=== PATIENT | female | born 1980 | race Hispanic/Latino ===

== ENCOUNTER 2017-05-28 15:00 | Inpatient (IN) | payer MEDICAID, OTHER ==
[2017-05-28 15:00] VITALS: BMI 28.0
[2017-05-28] MEDS ORDERED: Sodium Chloride 0.9% 1,000 ML IV STA ×2 (15:34→17:55)
--- NOTE | 2017-05-28 15:43 | ED PDOC ---
HPI: Abdomen History Per: Patient History/Exam Limitations: no limitations Onset/Duration Of Symptoms: Days Outside of [place] travel?: No Current Symptoms Are (Timing): Still Present Severity: Severe Pain Scale Rating Of: 9 Location Of Pain/Discomfort: Epigastric Quality Of Discomfort: Pressure Associated Symptoms: Urinary Symptoms (orange urine ), Other (diaphoresis ). denies: Fever, Chills, Nausea, Vomiting, Diarrhea, Constipation Exacerbating Factors: Movement, Walking, Deep Breaths Alleviating Factors: None Last Bowel Movement: Today Abnormal Vaginal Bleeding: No Last Menstral Period: 3 weeks ago <Laura Cheatham - Last Filed: 05/28/17 20:47> <Luli Galicia - Last Filed: 05/29/17 16:04> Time Seen by Provider: 05/28/17 15:03 Chief Complaint (Nursing): Abdominal Pain Additional Complaint(s): 36 YO Female with PMH of Anemia presents to [facility] ED for abdominal pain. Pt states that the pain started suddenly yesterday. Pain is pressure in nature and rated as a 9/10 with radiation to the RLQ, and pain that goes through to the back and R/L flank. Pain has persisted and gradually worsened since its onset. Pt endorses orange urine this morning. Of note, pt endorses similar episode in the past 2 months ago but the pain subsided by itself. This time the pain is worse and not subsided. Denies fever, chills, n/v/c/d, no changes in stool, chest pain, dyspnea, dysuria, urinary frequency. + diaphoresis. of note, pt has recently lost 60+lbs since december of this year. She started taking phentermine to loose weight. (Laura Cheatham) Supervising Attending Note <Laura Cheatham - Last Filed: 05/28/17 20:47> - Supervising Attending Note The Documented history was done by the: Physician Document Clerk, Attending Physician The documented physical exam was done by the: Physician Document Clerk, Attending Physician - Attestation: I have personally seen and examined this patient.: Yes I have fully participated in the care of the patient.: Yes I have reviewed all pertinent clinical information: Yes <Luli Galicia - Last Filed: 05/29/17 16:04> - Notes: Notes:: Epig tenderness DW Dr Wellington Hospitalist admitting for PMD Dr Cueva. She evaluated pt in ER and d/ w Dr Joy for Surgery. VERNA Velasquez GI fellow for Dr Ambriz. Recommends MRCP and IVF. Will follow in hospital. (Luli Galicia) Past Medical History Reviewed: Historical Data, Nursing Documentation, Vital Signs - Medical History PMH: Anemia - Surgical History Surgical History: No Surg Hx - Family History Family History: States: Unknown Family Hx - Living Arrangements Living Arrangements: With Family - Social History Current smoker - smoking cessation education provided: No Ex-Smoker (has not smoked in the last 12 months): No Alcohol: None Drugs: Denies <Laura Cheatham - Last Filed: 05/28/17 20:47> <Luli Galicia - Last Filed: 05/29/17 16:04> Vital Signs: Last Vital Signs Temp 98.3 F 05/29/17 07:33 Pulse 86 05/29/17 07:33 Resp 18 05/29/17 07:33 BP 110/72 05/29/17 07:33 Pulse Ox 98 05/29/17 07:33 - Home Medications Home Medications: Ambulatory Orders Medication Instructions Recorded No Known Home Med 05/28/17 - Allergies Allergies/Adverse Reactions: Allergies Allergy/AdvReac Type Severity Reaction Status Date / Time No Known Allergies Allergy Verified 01/20/15 16:33 Review of Systems ROS Statement: Except As Marked, All Systems Reviewed And Found Negative Constitutional: Positive for: Sweats (diaphoresis ). Negative for: Fever, Chills Cardiovascular: Negative for: Chest Pain, Palpitations Respiratory: Negative for: Cough, Shortness of Breath Gastrointestinal: Positive for: Abdominal Pain (epigastric pain with radiation to L+R flank and RLQ). Negative for: Nausea, Vomiting, Diarrhea, Constipation Genitourinary Female: Positive for: Other (orange urine ). Negative for: Dysuria, Frequency <Laura Cheatham - Last Filed: 05/28/17 20:47> Physical Exam - Reviewed Nursing Documentation Reviewed: Yes Vital Signs Reviewed: Yes - Physical Exam Appears: Positive for: Well (Pt looks pale), Non-toxic, Uncomfortable Head Exam: Positive for: ATRAUMATIC, NORMAL INSPECTION, NORMOCEPHALIC Skin: Positive for: Normal Color, Warm, DRY Eye Exam: Positive for: EOMI, Normal appearance, PERRL ENT: Positive for: Normal ENT Inspection Neck: Positive for: Normal, Painless ROM Cardiovascular/Chest: Positive for: Regular Rate, Rhythm. Negative for: Murmur Respiratory: Positive for: CNT, Normal Breath Sounds Gastrointestinal/Abdominal: Positive for: Bowel Sounds, Soft, Tenderness ( tenderness to palpation of the epigastric area), Other (Cordova's sign neg ). Negative for: Mass, Distended, Guarding, Rebound Back: Positive for: Normal Inspection. Negative for: L CVA Tenderness, R CVA Tenderness Extremity: Positive for: Normal ROM. Negative for: Tenderness, Pedal Edema, Swelling Neurologic/Psych: Positive for: Alert, surveillance sensor officer II-XII, Oriented <Laura Cheatham - Last Filed: 05/28/17 20:47> - Laboratory Results Result Diagrams: 05/28/17 15:35 05/28/17 16:00 - ECG O2 Sat by Pulse Oximetry: 100 <Laura Cheatham - Last Filed: 05/28/17 20:47> - Laboratory Results Result Diagrams: 05/29/17 05:30 05/29/17 05:30 <Luli Galicia - Last Filed: 05/29/17 16:04> - Progress ED Course And Treament: 36 YO Female with PMH of Anemia presents to [facility] ED for abdominal pain. -IV fluids and meds administered -cbc wnl -cmp sig for T bili 5.4, AST 366, ALT 501 and alk phos 143. -lipase -type and screen -u/s of the abdomen appreciated, findings + for cordova's sign, cholecystitis with choledocolithiasis -urine dip sig for large bili, urobili with ketones, glucose and protein. 17:27- pt re-evaluated. Pt feels better but pain is still persistent. Pt notified of her results and she understands and agrees with plan -lipase 44210, acute pancreatitis -admit pt -case discussed with hospitalist (Laura Cheatham) Disposition - Patient ED Disposition Is Patient to be Admitted: Yes - Disposition Disposition Time: 18:54 - Pt Status Changed To: Hospital Disposition Of: Inpatient - Admit Certification Admit to Inpatient:: After my assessment, the patient will require hospitalization for at least two midnights. This is because of the severity of symptoms shown, intensity of services needed, and/or the medical risk in this patient being treated as an outpatient. <Laura Cheatham - Last Filed: 05/28/17 20:47> <Luli Galicia - Last Filed: 05/29/17 16:04> - Clinical Impression Clinical Impression: Pancreatitis, acute, Choledocholithiasis with acute cholecystitis with obstruction - Disposition Condition: STABLE
[2017-05-28 16:08] LABS: BASO % 0.3 % (0.0-2.0); EOS % 0.2 % (0.0-4.0); LYMPH # 0.6 K/uL (1.0-4.3); LYMPH % 6.3 % (20.0-40.0); MEAN CELL VOLUME 83.7 fl (81.0-99.0); MEAN CORPUSCULAR HEMOGLOBIN 28.3 pg (27.0-31.0); MEAN CORPUSCULAR HGB CONC 33.8 g/dL (33.0-37.0); MEAN PLATELET VOLUME 9.3 fl (7.2-11.7); MONO # 0.5 K/uL (0.0-0.8); MONO % 5.4 % (0.0-10.0); NEUT # 7.8 K/uL (1.8-7.0); NEUT % 87.8 % (50.0-75.0); PLATELET COUNT 240 K/uL (130-400); RED CELL DISTRIBUTION WIDTH 14.2 % (11.5-14.5); WHITE BLOOD COUNT 8.9 K/uL (4.8-10.8)
[2017-05-28 16:15] LABS: RBC URINE 4 /hpf (0-3); URINE BILIRUBIN MODERATE (NEGATIVE); URINE BLOOD NEGATIVE (NEGATIVE); URINE COLOR AMBER (YELLOW); URINE GLUCOSE (UA) NEG (Normal); URINE KETONE TRACE mg/dL (NEGATIVE); URINE LEUKOCYTE ESTERASE NEG Leu/uL (Negative); URINE PROTEIN 100 mg/dL (NEGATIVE); WBC URINE 5 /hpf (0-5)
[2017-05-28 16:19] LABS: PARTIAL THROMBOPLASTIN TIME 31.1 Seconds (25.6-37.1)
[2017-05-28 16:23] LABS: URINE BACTERIA RARE (<OCC)
[2017-05-28 16:31] LABS: ALB/GLOB RATIO 1.3 (1.0-2.1); ALKALINE PHOSPHATASE 143 U/L (38-126); ALT/SGPT 501 U/L (9-52); AST/SGOT 366 U/L (14-36); BILIRUBIN,TOTAL 5.4 mg/dl (0.2-1.3); BLOOD UREA NITROGEN 8 mg/dl (7-17); CALCIUM 8.9 mg/dL (8.4-10.2); CARBON DIOXIDE 23 mmol/L (22-30); CHLORIDE 105 mmol/L (98-107); GFR AFRICAN-AMERICAN > 60; GLUCOSE,RANDOM 102 mg/dL (65-105); POTASSIUM 3.3 MMOL/L (3.6-5.0); SODIUM 140 mmol/l (132-148); TOTAL PROTEIN 7.5 G/DL (6.3-8.2)
--- NOTE | 2017-05-28 17:19 | US ---
HISTORY: epig and LEFT flank pain COMPARISON: None. TECHNIQUE: Sonographic evaluation of the abdomen. FINDINGS: LIVER: Measures 15.0 cm. Normal echogenicity of the liver parenchyma. No mass. No intrahepatic bile duct dilatation. Normal hepatopetal portal venous flow. GALLBLADDER: Tiny calculi and sludge. Mild mural thickening noted up to 4 mm. No pericholecystic fluid. Positive sonographic Cordova sign. COMMON BILE DUCT: Measures 10 mm. No evidence of choledocholithiasis. PANCREAS: Unremarkable as visualized. No mass. No ductal dilatation. RIGHT KIDNEY: Measures 9.6cm. Normal echogenicity. No calculus, mass, or hydronephrosis. LEFT KIDNEY: Measures 10.6cm. Normal echogenicity. No calculus, mass, or hydronephrosis. SPLEEN: Normal in size and contour. No mass. AORTA: No aneurysmal dilatation. IVC: Unremarkable. OTHER FINDINGS: None. IMPRESSION: Cholelithiasis with mild mural thickening and positive sonographic Cordova sign. Findings are suspicious for acute cholecystitis. Dilatation of the common bile duct to a 10 mm diameter. No accompanying pancreatic ductal dilatation. No intrahepatic biliary ductal dilatation.
[2017-05-28 17:38] LABS: EOSINOPHIL 2 % (0-7); NEUTROPHIL 84 % (42-75); TOTAL CELLS COUNTED 100
[2017-05-28 17:53] LABS: LIPASE 19614 U/L (23-300)
[2017-05-28] MEDS ORDERED: Piperacillin/Tazobact 3.375 GM in Sodium Chloride 0.9% 100 ML IVPB STA (17:56)
[2017-05-28] MEDS ORDERED: Potassium CL 10mEq/100ml 100 ML IVPB ONE (18:07)
[2017-05-28] MEDS ORDERED: Piperacillin/Tazobact 3.375 gm Inj IVPB ONE (18:17)
[2017-05-28 18:49] LABS: VENOUS BLOOD GAS BASE EXCESS -0.7 mmol/L (0.0-2.0); VENOUS BLOOD GAS PCO2 49 mmHg (40-60); VENOUS BLOOD PH 7.33 (7.32-7.43)
[2017-05-28] MEDS ORDERED: Lactated Ringer's 1,000 ML IV SCH (19:00)
--- NOTE | 2017-05-28 19:06 | CP.PCM.HP ---
History of Present Illness - History of Present Illness History of Present Illness: CC: STOMACH PAIN HPI 36 year old female no PMH presents with a 2 day history of severe sharp constant and worsening abdominal pain which began midepigastric and moved to RUQ , radiating to back. No associated nausea or emesis. Increased pain with eating , also complains of very dark sujatha urine. She states she has had this pain several times in the past and was self-limited. Pt also admits to several months of generalized itchiness and yellow stool. She states she was seen by PCP Dr. Cueva for this. Note: pt had appx 60lb weight loss using Phentermine in past 5 months. Normal WBC, afebrile. HD stable. ABD US: +cholecystitis , CBD 10MM TBILI 5.4 AST/ALT 366/501 ALP 143 URINE BILI MOD LIPASE 19,614 Pt admitted for acute gallstone pancreatitis, acute cholecystitis. Surgery and GI consulted. For MRCP in AM. ROS: per HPI all other systems reviewed and negative by me PMSH: DENIES FH: PANCREATIC CA SH: DENIES TOBACCO, ETOH, IVDU MEDS NONE NKDA VITALS Temp Pulse Resp BP Pulse Ox 98.3 F 87 17 117/79 100 05/28/17 18:29 05/28/17 18:29 05/28/17 18:29 05/28/17 18:29 05/28/17 18:55 EXAM: GEN: WDWN, ALERT, COOPERATIVE HEENT: NCAT, PERRL, EOMI HEART: +S1+S2, RRR NO MRG LUNG: CTAB, NO WRR ABD: SOFT BSX4 GENERALIZED TENDERNESS ND NO HSM NO MASS EXT: WARM, WELL PERFUSED NEURO: AA0X3, STRENGTH AND SENSATION EQUAL AND BILATERAL SKIN: WARM DRY PSYCH: NORMAL MOOD NORMAL AFFECT LABS 05/28/17 05/28/17 05/28/17 18:41 18:20 16:00 WBC RBC Hgb Hct MCV MCH MCHC RDW Plt Count MPV Neut % (Auto) Lymph % (Auto) [place] % (Auto) Eos % (Auto) Baso % (Auto) Neut # Lymph # [place] # Eos # Baso # Neutrophils % (Manual) Band Neutrophils % Lymphocytes % (Manual) Monocytes % (Manual) Eosinophils % (Manual) Platelet Estimate Hypochromasia (manual) Poikilocytosis (manual Anisocytosis (manual) Microcytosis (manual) PT INR APTT pO2 16 L VBG pH 7.33 VBG pCO2 49 VBG HCO3 22.2 VBG Total CO2 27.3 VBG O2 Sat (Calc) 27.2 L VBG Base Excess -0.7 L VBG Potassium 3.9 Glucose 95 Lactate 0.9 FiO2 21.0 Sodium 137.0 140 Potassium 3.3 L Chloride 107.0 105 Carbon Dioxide 23 Anion Gap 15 BUN 8 Creatinine 0.7 Est GFR ( Amer) > 60 Est GFR (Non-Af Amer) > 60 Random Glucose 102 Calcium 8.9 Total Bilirubin 5.4 H AST 366 H ALT 501 H D Alkaline Phosphatase 143 H Lactate Dehydrogenase 767 H Total Protein 7.5 Albumin 4.2 Globulin 3.2 Albumin/Globulin Ratio 1.3 Lipase 30171 H Venous Blood Potassium 3.9 Urine Color Urine Clarity Urine pH Ur Specific [place] Urine Protein Urine Glucose (UA) Urine Ketones Urine Blood Urine Nitrate Urine Bilirubin Urine Urobilinogen Ur Leukocyte Esterase Urine RBC (Auto) Urine Microscopic WBC Ur Squamous Epith Cells Urine Bacteria Blood Type Antibody Screen BBK History Checked 05/28/17 05/28/17 05/28/17 15:55 15:35 15:35 WBC RBC Hgb Hct MCV MCH MCHC RDW Plt Count MPV Neut % (Auto) Lymph % (Auto) [place] % (Auto) Eos % (Auto) Baso % (Auto) Neut # Lymph # [place] # Eos # Baso # Neutrophils % (Manual) Band Neutrophils % Lymphocytes % (Manual) Monocytes % (Manual) Eosinophils % (Manual) Platelet Estimate Hypochromasia (manual) Poikilocytosis (manual Anisocytosis (manual) Microcytosis (manual) PT 11.9 INR 1.1 APTT 31.1 pO2 VBG pH VBG pCO2 VBG HCO3 VBG Total CO2 VBG O2 Sat (Calc) VBG Base Excess VBG Potassium Glucose Lactate FiO2 Sodium Potassium Chloride Carbon Dioxide Anion Gap BUN Creatinine Est GFR ( Amer) Est GFR (Non-Af Amer) Random Glucose Calcium Total Bilirubin AST ALT Alkaline Phosphatase Lactate Dehydrogenase Total Protein Albumin Globulin Albumin/Globulin Ratio Lipase Venous Blood Potassium Urine Color Sujatha Urine Clarity Slighty-cloudy Urine pH 5.0 Ur Specific [place] 1.028 Urine Protein 100 Urine Glucose (UA) Neg Urine Ketones Trace Urine Blood Negative Urine Nitrate Negative Urine Bilirubin Moderate Urine Urobilinogen 4.0 H Ur Leukocyte Esterase Neg Urine RBC (Auto) 4 H Urine Microscopic WBC 5 Ur Squamous Epith Cells 6 H Urine Bacteria Rare Blood Type O POSITIVE Antibody Screen Negative BBK History Checked No verified bt 05/28/17 15:35 WBC 8.9 RBC 4.54 Hgb 12.9 Hct 38.0 MCV 83.7 D MCH 28.3 MCHC 33.8 RDW 14.2 Plt Count 240 MPV 9.3 Neut % (Auto) 87.8 H Lymph % (Auto) 6.3 L [place] % (Auto) 5.4 Eos % (Auto) 0.2 Baso % (Auto) 0.3 Neut # 7.8 H Lymph # 0.6 L [place] # 0.5 Eos # 0.0 Baso # 0.0 Neutrophils % (Manual) 84 H Band Neutrophils % 2 Lymphocytes % (Manual) 8 L Monocytes % (Manual) 4 Eosinophils % (Manual) 2 Platelet Estimate Normal Hypochromasia (manual) Slight Poikilocytosis (manual Slight Anisocytosis (manual) Slight Microcytosis (manual) Slight PT INR APTT pO2 VBG pH VBG pCO2 VBG HCO3 VBG Total CO2 VBG O2 Sat (Calc) VBG Base Excess VBG Potassium Glucose Lactate FiO2 Sodium Potassium Chloride Carbon Dioxide Anion Gap BUN Creatinine Est GFR ( Amer) Est GFR (Non-Af Amer) Random Glucose Calcium Total Bilirubin AST ALT Alkaline Phosphatase Lactate Dehydrogenase Total Protein Albumin Globulin Albumin/Globulin Ratio Lipase Venous Blood Potassium Urine Color Urine Clarity Urine pH Ur Specific [place] Urine Protein Urine Glucose (UA) Urine Ketones Urine Blood Urine Nitrate Urine Bilirubin Urine Urobilinogen Ur Leukocyte Esterase Urine RBC (Auto) Urine Microscopic WBC Ur Squamous Epith Cells Urine Bacteria Blood Type Antibody Screen BBK History Checked IMAGING STUDIES ABD US - Cholelithiasis, mild mural thickening and + sono Cordova's sign. Findings suspicious for acute cholecystitis. CBD 10mm, no pancreatic ductal dilatation, no intrahepatic biliary ductal dilatiation. Active Medications 05/28/17 18:00 Dextrose 5%-0.9% NS [Dextrose 5%-0.9% NS 500 ml] 1,000 ml IV 100 mls/hr 05/28/17 18:52 Acetaminophen [Tylenol 325mg tab] 650 mg PO Q6 PRN Morphine 2 mg IVP Q6 PRN Morphine 4 mg IVP Q6 PRN Ondansetron [Zofran Inj] 4 mg IVP Q6 PRN 05/28/17 19:00 Lactated Ringer's 1,000 ml IV 250 mls/hr 05/29/17 01:00 Piperacillin/Tazobact [Zosyn] 3.375 gm Sodium Chloride 0.9% 100 ml IVPB Q8 Clinical Indication: Therapeutic Therapy Piperacillin-Tazobactam Indication: Intra-Abdominal Infx 05/29/17 09:00 Enoxaparin [Lovenox] 40 mg SC DAILY ASSESSMENT AND PLAN: 36 year old female no PMH presents with a 2 day history of severe sharp constant and worsening abdominal pain which began midepigastric and moved to RUQ , radiating to back. No associated nausea or emesis. Increased pain with eating , also complains of very dark sujatha urine. She states she has had this pain several times in the past and was self-limited. Pt also admits to several months of generalized itchiness and yellow stool. She states she was seen by PCP Dr. Cueva for this. Note: pt had appx 60lb weight loss using Phentermine in past 5 months. Normal WBC, afebrile. HD stable. ABD US: +cholecystitis , CBD 10MM TBILI 5.4 AST/ALT 366/501 ALP 143 URINE BILI MOD LIPASE 19,614 Pt admitted for acute gallstone pancreatitis, acute cholecystitis. Surgery and GI consulted. For MRCP in AM. ACUTE GALLSTONE PANCREATITIS Lipase 08413 NPO, LR@250cc/hr Gastroenterology Consult: Dr. Ambriz Pain Control CHOLEDOCHOLITHIASIS MRCP in AM GI consult: Dr. Ambriz ACUTE CHOLECYSTITIS Surgery Consult: Dr. Rufino Alvarado Tbili 5.4 +US for Cholecystitis pain control ELEVATED TRANSAMINASES 2/2 acute pancreatitis and cholecystitis AST/ALT/ALP 366/501/143 monitor HYPOKALEMIA K 3.3 repleted in ER BMP in AM VTE ppx lovenox Present on Admission - Present on Admission Any Indicators Present on Admission: No Past Patient History - Infectious Disease Hx of Infectious Diseases: None - Past Social History Alcohol: None Drugs: Denies - HEMATOLOGICAL/ONCOLOGICAL Hx Anemia: Yes - PSYCHIATRIC Hx Substance Use: No - SURGICAL HISTORY Hx Surgeries: No - ANESTHESIA Hx Anesthesia: No Meds Allergies/Adverse Reactions: Allergies Allergy/AdvReac Type Severity Reaction Status Date / Time No Known Allergies Allergy Verified 01/20/15 16:33 Results - Vital Signs Recent Vital Signs: Last Vital Signs Temp 98.3 F 05/28/17 18:29 Pulse 87 05/28/17 18:29 Resp 17 05/28/17 18:29 BP 117/79 05/28/17 18:29 Pulse Ox 100 05/28/17 18:55 - Labs Result Diagrams: 05/28/17 15:35 05/28/17 16:00 Labs: Laboratory Results - last 24 hr 05/28/17 05/28/17 05/28/17 15:35 15:35 15:35 WBC 8.9 RBC 4.54 Hgb 12.9 Hct 38.0 MCV 83.7 D MCH 28.3 MCHC 33.8 RDW 14.2 Plt Count 240 MPV 9.3 Neut % (Auto) 87.8 H Lymph % (Auto) 6.3 L [place] % (Auto) 5.4 Eos % (Auto) 0.2 Baso % (Auto) 0.3 Neut # 7.8 H Lymph # 0.6 L [place] # 0.5 Eos # 0.0 Baso # 0.0 Neutrophils % (Manual) 84 H Band Neutrophils % 2 Lymphocytes % (Manual) 8 L Monocytes % (Manual) 4 Eosinophils % (Manual) 2 Platelet Estimate Normal Hypochromasia (manual) Slight Poikilocytosis (manual Slight Anisocytosis (manual) Slight Microcytosis (manual) Slight PT 11.9 INR 1.1 APTT 31.1 pO2 VBG pH VBG pCO2 VBG HCO3 VBG Total CO2 VBG O2 Sat (Calc) VBG Base Excess VBG Potassium Glucose Lactate FiO2 Sodium Potassium Chloride Carbon Dioxide Anion Gap BUN Creatinine Est GFR ( Amer) Est GFR (Non-Af Amer) Random Glucose Calcium Total Bilirubin AST ALT Alkaline Phosphatase Lactate Dehydrogenase Total Protein Albumin Globulin Albumin/Globulin Ratio Lipase Venous Blood Potassium Urine Color Urine Clarity Urine pH Ur Specific [place] Urine Protein Urine Glucose (UA) Urine Ketones Urine Blood Urine Nitrate Urine Bilirubin Urine Urobilinogen Ur Leukocyte Esterase Urine RBC (Auto) Urine Microscopic WBC Ur Squamous Epith Cells Urine Bacteria Blood Type O POSITIVE Antibody Screen Negative BBK History Checked No verified bt 05/28/17 05/28/17 05/28/17 15:55 16:00 18:20 WBC RBC Hgb Hct MCV MCH MCHC RDW Plt Count MPV Neut % (Auto) Lymph % (Auto) [place] % (Auto) Eos % (Auto) Baso % (Auto) Neut # Lymph # [place] # Eos # Baso # Neutrophils % (Manual) Band Neutrophils % Lymphocytes % (Manual) Monocytes % (Manual) Eosinophils % (Manual) Platelet Estimate Hypochromasia (manual) Poikilocytosis (manual Anisocytosis (manual) Microcytosis (manual) PT INR APTT pO2 VBG pH VBG pCO2 VBG HCO3 VBG Total CO2 VBG O2 Sat (Calc) VBG Base Excess VBG Potassium Glucose Lactate FiO2 Sodium 140 Potassium 3.3 L Chloride 105 Carbon Dioxide 23 Anion Gap 15 BUN 8 Creatinine 0.7 Est GFR ( Amer) > 60 Est GFR (Non-Af Amer) > 60 Random Glucose 102 Calcium 8.9 Total Bilirubin 5.4 H AST 366 H ALT 501 H D Alkaline Phosphatase 143 H Lactate Dehydrogenase 767 H Total Protein 7.5 Albumin 4.2 Globulin 3.2 Albumin/Globulin Ratio 1.3 Lipase 34457 H Venous Blood Potassium Urine Color Sujatha Urine Clarity Slighty-cloudy Urine pH 5.0 Ur Specific [place] 1.028 Urine Protein 100 Urine Glucose (UA) Neg Urine Ketones Trace Urine Blood Negative Urine Nitrate Negative Urine Bilirubin Moderate Urine Urobilinogen 4.0 H Ur Leukocyte Esterase Neg Urine RBC (Auto) 4 H Urine Microscopic WBC 5 Ur Squamous Epith Cells 6 H Urine Bacteria Rare Blood Type Antibody Screen BBK History Checked 05/28/17 18:41 WBC RBC Hgb Hct MCV MCH MCHC RDW Plt Count MPV Neut % (Auto) Lymph % (Auto) [place] % (Auto) Eos % (Auto) Baso % (Auto) Neut # Lymph # [place] # Eos # Baso # Neutrophils % (Manual) Band Neutrophils % Lymphocytes % (Manual) Monocytes % (Manual) Eosinophils % (Manual) Platelet Estimate Hypochromasia (manual) Poikilocytosis (manual Anisocytosis (manual) Microcytosis (manual) PT INR APTT pO2 16 L VBG pH 7.33 VBG pCO2 49 VBG HCO3 22.2 VBG Total CO2 27.3 VBG O2 Sat (Calc) 27.2 L VBG Base Excess -0.7 L VBG Potassium 3.9 Glucose 95 Lactate 0.9 FiO2 21.0 Sodium 137.0 Potassium Chloride 107.0 Carbon Dioxide Anion Gap BUN Creatinine Est GFR ( Amer) Est GFR (Non-Af Amer) Random Glucose Calcium Total Bilirubin AST ALT Alkaline Phosphatase Lactate Dehydrogenase Total Protein Albumin Globulin Albumin/Globulin Ratio Lipase Venous Blood Potassium 3.9 Urine Color Urine Clarity Urine pH Ur Specific [place] Urine Protein Urine Glucose (UA) Urine Ketones Urine Blood Urine Nitrate Urine Bilirubin Urine Urobilinogen Ur Leukocyte Esterase Urine RBC (Auto) Urine Microscopic WBC Ur Squamous Epith Cells Urine Bacteria Blood Type Antibody Screen BBK History Checked
[2017-05-28] MEDS: Sodium Chloride 0.9% 1,000 ML IV SCH (20:35)
--- NOTE | 2017-05-28 22:19 | CP.PCM.CON ---
History of Present Illness - History of Present Illness History of Present Illness: General Surgery Dr. Joy 36 y/o F w/ no significant PMHx presents to the ED c/o abd pain. Pt states pain began Wednesday night in RUQ/epigastric region. Pt admits to having similar pain in the past; however this time, the pain continued to worsen despite OTC remedies. Pain described as radiating, burning pain that begins in epigastric region and migrates to RUQ w/ radiation into mid-back and R shoulder. Pain significantly worsened after PO intake this AM. Pt reports noticing changes in skin, stool, and urine color over the last few days to weeks. Pt reports yellow discoloration to skin and sclera, yellow, loose BM, and dark urine. Pt admits to pruritus, hot flashes, chills, diarrhea, numbness of hands, fatigue. Pt denies fever, N/V. PMHx: cervical lymphadenopathy Meds: reviewed in chart NKDA PSHx: thyroid Bx SHx: denies tobacco, drug use. occasional EtOH use FHx: Gmom - pancreatic Ca; lymphoma, DM2, HTN Review of Systems - Review of Systems All systems: reviewed and no additional remarkable complaints except (see HPI) Past Patient History - Infectious Disease Hx of Infectious Diseases: None - Past Social History Alcohol: None Drugs: Denies - HEMATOLOGICAL/ONCOLOGICAL Hx Anemia: Yes - PSYCHIATRIC Hx Substance Use: No - SURGICAL HISTORY Hx Surgeries: No - ANESTHESIA Hx Anesthesia: No Meds Allergies/Adverse Reactions: Allergies Allergy/AdvReac Type Severity Reaction Status Date / Time No Known Allergies Allergy Verified 01/20/15 16:33 - Medications Medications: Current Medications Acetaminophen (Tylenol 325mg Tab) 650 mg PO Q6 PRN PRN Reason: Fever >100.4 F Enoxaparin Sodium (Lovenox) 40 mg SC DAILY PASHA PRN Reason: Protocol Dextrose/Sodium Chloride (Dextrose 5%-0.9% Ns 500 Ml) 1,000 mls @ 100 mls/hr IV .Q10H PASHA Last Admin: 05/28/17 20:33 Dose: 100 mls/hr Sodium Chloride (Sodium Chloride 0.9%) 1,000 mls @ 250 mls/hr IV .Q4H PASHA Stop: 05/29/17 20:05 Last Admin: 05/28/17 20:35 Dose: 250 mls/hr Physical Exam - Constitutional Appears: Non-toxic, No Acute Distress - Head Exam Head Exam: NORMAL INSPECTION - Eye Exam Eye Exam: Scleral icterus - ENT Exam ENT Exam: Mucous Membranes Moist Additional comments: icterus under tongue - Neck Exam Neck exam: Positive for: Normal Inspection - Respiratory Exam Respiratory Exam: NORMAL BREATHING PATTERN. absent: Accessory Muscle Use, Respiratory Distress - Cardiovascular Exam Cardiovascular Exam: absent: Bradycardia, Tachycardia - GI/Abdominal Exam GI & Abdominal Exam: Soft, Tenderness (TTP epigastric/RUQ). absent: Distended, Guarding, Rebound, Rigid - Extremities Exam Extremities exam: Positive for: normal inspection. Negative for: pedal edema - Neurological Exam Neurological exam: Alert, Oriented x3 - Psychiatric Exam Psychiatric exam: Normal Affect, Normal Mood - Skin Skin Exam: Dry, Intact, Warm Additional comments: Jaundice Results - Vital Signs Recent Vital Signs: Last Vital Signs Temp 98.3 F 05/28/17 19:30 Pulse 87 05/28/17 19:30 Resp 17 05/28/17 19:30 BP 117/79 05/28/17 19:30 Pulse Ox 100 05/28/17 20:47 - Labs Result Diagrams: 05/28/17 15:35 05/28/17 16:00 Labs: Laboratory Results - last 24 hr 05/28/17 05/28/17 05/28/17 15:35 15:35 15:35 WBC 8.9 RBC 4.54 Hgb 12.9 Hct 38.0 MCV 83.7 D MCH 28.3 MCHC 33.8 RDW 14.2 Plt Count 240 MPV 9.3 Neut % (Auto) 87.8 H Lymph % (Auto) 6.3 L [place] % (Auto) 5.4 Eos % (Auto) 0.2 Baso % (Auto) 0.3 Neut # 7.8 H Lymph # 0.6 L [place] # 0.5 Eos # 0.0 Baso # 0.0 Neutrophils % (Manual) 84 H Band Neutrophils % 2 Lymphocytes % (Manual) 8 L Monocytes % (Manual) 4 Eosinophils % (Manual) 2 Platelet Estimate Normal Hypochromasia (manual) Slight Poikilocytosis (manual Slight Anisocytosis (manual) Slight Microcytosis (manual) Slight PT 11.9 INR 1.1 APTT 31.1 pO2 VBG pH VBG pCO2 VBG HCO3 VBG Total CO2 VBG O2 Sat (Calc) VBG Base Excess VBG Potassium Glucose Lactate FiO2 Sodium Potassium Chloride Carbon Dioxide Anion Gap BUN Creatinine Est GFR ( Amer) Est GFR (Non-Af Amer) Random Glucose Calcium Total Bilirubin AST ALT Alkaline Phosphatase Lactate Dehydrogenase Total Protein Albumin Globulin Albumin/Globulin Ratio Lipase Venous Blood Potassium Urine Color Urine Clarity Urine pH Ur Specific [place] Urine Protein Urine Glucose (UA) Urine Ketones Urine Blood Urine Nitrate Urine Bilirubin Urine Urobilinogen Ur Leukocyte Esterase Urine RBC (Auto) Urine Microscopic WBC Ur Squamous Epith Cells Urine Bacteria Blood Type O POSITIVE Antibody Screen Negative BBK History Checked No verified bt 05/28/17 05/28/17 05/28/17 15:55 16:00 18:20 WBC RBC Hgb Hct MCV MCH MCHC RDW Plt Count MPV Neut % (Auto) Lymph % (Auto) [place] % (Auto) Eos % (Auto) Baso % (Auto) Neut # Lymph # [place] # Eos # Baso # Neutrophils % (Manual) Band Neutrophils % Lymphocytes % (Manual) Monocytes % (Manual) Eosinophils % (Manual) Platelet Estimate Hypochromasia (manual) Poikilocytosis (manual Anisocytosis (manual) Microcytosis (manual) PT INR APTT pO2 VBG pH VBG pCO2 VBG HCO3 VBG Total CO2 VBG O2 Sat (Calc) VBG Base Excess VBG Potassium Glucose Lactate FiO2 Sodium 140 Potassium 3.3 L Chloride 105 Carbon Dioxide 23 Anion Gap 15 BUN 8 Creatinine 0.7 Est GFR ( Amer) > 60 Est GFR (Non-Af Amer) > 60 Random Glucose 102 Calcium 8.9 Total Bilirubin 5.4 H AST 366 H ALT 501 H D Alkaline Phosphatase 143 H Lactate Dehydrogenase 767 H Total Protein 7.5 Albumin 4.2 Globulin 3.2 Albumin/Globulin Ratio 1.3 Lipase 84702 H Venous Blood Potassium Urine Color [place] Urine Clarity Slighty-cloudy Urine pH 5.0 Ur Specific [place] 1.028 Urine Protein 100 Urine Glucose (UA) Neg Urine Ketones Trace Urine Blood Negative Urine Nitrate Negative Urine Bilirubin Moderate Urine Urobilinogen 4.0 H Ur Leukocyte Esterase Neg Urine RBC (Auto) 4 H Urine Microscopic WBC 5 Ur Squamous Epith Cells 6 H Urine Bacteria Rare Blood Type Antibody Screen BBK History Checked 05/28/17 18:41 WBC RBC Hgb Hct MCV MCH MCHC RDW Plt Count MPV Neut % (Auto) Lymph % (Auto) [place] % (Auto) Eos % (Auto) Baso % (Auto) Neut # Lymph # [place] # Eos # Baso # Neutrophils % (Manual) Band Neutrophils % Lymphocytes % (Manual) Monocytes % (Manual) Eosinophils % (Manual) Platelet Estimate Hypochromasia (manual) Poikilocytosis (manual Anisocytosis (manual) Microcytosis (manual) PT INR APTT pO2 16 L VBG pH 7.33 VBG pCO2 49 VBG HCO3 22.2 VBG Total CO2 27.3 VBG O2 Sat (Calc) 27.2 L VBG Base Excess -0.7 L VBG Potassium 3.9 Glucose 95 Lactate 0.9 FiO2 21.0 Sodium 137.0 Potassium Chloride 107.0 Carbon Dioxide Anion Gap BUN Creatinine Est GFR ( Amer) Est GFR (Non-Af Amer) Random Glucose Calcium Total Bilirubin AST ALT Alkaline Phosphatase Lactate Dehydrogenase Total Protein Albumin Globulin Albumin/Globulin Ratio Lipase Venous Blood Potassium 3.9 Urine Color Urine Clarity Urine pH Ur Specific [place] Urine Protein Urine Glucose (UA) Urine Ketones Urine Blood Urine Nitrate Urine Bilirubin Urine Urobilinogen Ur Leukocyte Esterase Urine RBC (Auto) Urine Microscopic WBC Ur Squamous Epith Cells Urine Bacteria Blood Type Antibody Screen BBK History Checked - Imaging and Cardiology US - abdomen Status: Image reviewed by me, Report reviewed by me Assessment & Plan - Assessment and Plan (Free Text) Assessment: 36 y/o F w/ gallstone pancreatitis - NPO - aggressive fluid resuscitation - pain management - f/u MRCP results - f/u GI recs - serial abd exams - monitor labs/vitals - replete electrolytes PRN Pt discussed w/ Dr. Rufino Schreiber DO PGY2
[2017-05-28 23:57] VITALS: O2SAT 98
[2017-05-29] MEDS: Sodium Chloride 0.9% 1,000 ML IV SCH (00:58)
[2017-05-29] MEDS ORDERED: Piperacillin/Tazobact 3.375 GM in Sodium Chloride 0.9% 100 ML IVPB SCH (01:00)
[2017-05-29] MEDS: Piperacillin/Tazobact 3.375 GM in Sodium Chloride 0.9% 100 ML IVPB SCH ×2 (03:07→10:53)
[2017-05-29] MEDS ORDERED: Potassium Chl 20 mEq in D5-NS 1,000 ML IV SCH (06:15)
--- NOTE | 2017-05-29 06:34 | CARD ---
APPROVED REPORT EKG Measurement Heart [id number] <Conclusion> Normal sinus rhythm Normal ECG
[2017-05-29 07:33] VITALS: BP 110/72; PULSE 86; RESP 18; TEMP 98.3
[2017-05-29 07:43] LABS: BASO % 0.6 % (0.0-2.0); EOS # 0.1 K/uL (0.0-0.7); EOS % 1.2 % (0.0-4.0); LYMPH % 21.5 % (20.0-40.0); MEAN CELL VOLUME 85.4 fl (81.0-99.0); MEAN CORPUSCULAR HEMOGLOBIN 27.6 pg (27.0-31.0); MEAN CORPUSCULAR HGB CONC 32.3 g/dL (33.0-37.0); MEAN PLATELET VOLUME 9.5 fl (7.2-11.7); MONO # 0.2 K/uL (0.0-0.8); MONO % 5.5 % (0.0-10.0); NEUT # 3.2 K/uL (1.8-7.0); NEUT % 71.2 % (50.0-75.0); RED CELL DISTRIBUTION WIDTH 14.2 % (11.5-14.5); WHITE BLOOD COUNT 4.5 K/uL (4.8-10.8)
[2017-05-29 07:55] LABS: ALKALINE PHOSPHATASE 103 U/L (38-126); ALT/SGPT 292 U/L (9-52); AST/SGOT 135 U/L (14-36); BILIRUBIN,TOTAL 1.9 mg/dl (0.2-1.3); BLOOD UREA NITROGEN 5 mg/dl (7-17); CALCIUM 7.8 mg/dL (8.4-10.2); CARBON DIOXIDE 21 mmol/L (22-30); CHLORIDE 110 mmol/L (98-107); GFR AFRICAN-AMERICAN > 60; GLUCOSE,RANDOM 108 mg/dL (65-105); POTASSIUM 3.3 MMOL/L (3.6-5.0); SODIUM 140 mmol/l (132-148); TOTAL PROTEIN 5.6 G/DL (6.3-8.2)
[2017-05-29 07:56] LABS: ALB/GLOB RATIO 1.2 (1.0-2.1)
[2017-05-29] MEDS ORDERED: Sodium Chloride 0.9% 50 ML IV ONE (08:29)
[2017-05-29] MEDS ORDERED: Gadodiamide 287 MG/ML VIAL (15ML) IV ONE (08:29)
[2017-05-29] MEDS ORDERED: Enoxaparin 40 mg Syringe SC SCH (09:00)
[2017-05-29] MEDS ORDERED: Potassium Chloride 20 mEq ER Tab PO ONE (11:14)
[2017-05-29] MEDS: Lactated Ringer's 1,000 ML IV SCH ×2 (11:36→16:03)
--- NOTE | 2017-05-29 11:51 | MRI ---
PROCEDURE: Magnetic Resonance Cholangiopancreatography HISTORY: COMPARISON: Ultrasound exam yesterday. TECHNIQUE: Multiplanar, multisequence MR images of the abdomen were obtained, including heavily T2 weighted MRCP images of the biliary system. Rotating maximum intensity projection images of the biliary system were generated. Intravenous Gadolinium was administered. FINDINGS: MRCP: The common bile duct is of a normal caliber. No evidence of choledocholithiasis. No intrahepatic biliary ductal dilatation. No common bile duct stone is seen. LIVER: Unremarkable. GALLBLADDER: There appears to be the suggestion of some mild pericholecystic intermediate signal and some possible mild wall thickening of the gallbladder corresponding with the ultrasound exam. A mild amount of additional high-signal fluid is possibly seen in Terrell's pouch. Small gallstones and/or sludge are appreciated within the gallbladder without significant distention. Imaging findings probably suggest acute cholecystitis. SPLEEN: Unremarkable. PANCREAS: Unremarkable. ADRENALS: Unremarkable. KIDNEYS: Probable bilateral extrarenal pelvis. No evidence of renal mass, hydronephrosis, or perinephric change. AORTA: No aneurysm. ASCITES: Mild right upper quadrant fluid is appreciated adjacent to the gallbladder and within Terrell's pouch. OTHER FINDINGS: Marrow signal is normal. Lung bases show no evidence of infiltrate or effusion. Visualized stomach, duodenum, and remainder of the bowel are within normal limits. There is limited evaluation of the pelvis although no adnexal masses are seen in the uterus is normal in size. Minimal amount of physiologic fluid is suspected in the pelvis. IMPRESSION: Gallbladder wall thickening with small stones or gallbladder sludge and pericholecystic fluid. Mild additional fluid in Terrell's pouch. There may be some enhancement of the wall identified on the postcontrast imaging. No common bile duct dilatation or choledocholithiasis noted.
--- NOTE | 2017-05-29 11:53 | CP.PCM.PN ---
Subjective - Date & Time of Evaluation Date of Evaluation: 05/29/17 Time of Evaluation: 07:10 - Subjective Subjective: Patient seen and examined this AM. NAEO. Patient states that pain is improved with current management. Denies nausea or vomiting, fevers or chills. Objective - Vital Signs/Intake and Output Vital Signs (last 24 hours): Temp Pulse Resp BP Pulse Ox 98.3 F 86 18 110/72 98 05/29/17 07:33 05/29/17 07:33 05/29/17 07:33 05/29/17 07:33 05/29/17 07:33 - Medications Medications: Current Medications Acetaminophen (Tylenol 325mg Tab) 650 mg PO Q6 PRN PRN Reason: Fever >100.4 F Enoxaparin Sodium (Lovenox) 40 mg SC DAILY PASHA PRN Reason: Protocol Last Admin: 05/29/17 08:52 Dose: 40 mg Piperacillin Sod/Tazobactam (Sod 3.375 gm/ Sodium Chloride) 100 mls @ 100 mls/ hr IVPB Q6 PASHA PRN Reason: Protocol Last Admin: 05/29/17 10:53 Dose: 100 mls/hr Lactated Ringer's (Lactated Ringer's) 1,000 mls @ 200 mls/hr IV .Q5H PASHA Last Admin: 05/29/17 11:36 Dose: 200 mls/hr Potassium Chloride (Potassium Chloride 10 Meq/100 Ml) 100 mls @ 100 mls/hr IVPB Q1 PASHA Stop: 05/29/17 11:59 Morphine Sulfate (Morphine) 2 mg IVP Q4 PRN PRN Reason: Pain, moderate (4-7) Last Admin: 05/29/17 11:23 Dose: 2 mg Morphine Sulfate (Morphine) 4 mg IVP Q4 PRN PRN Reason: Pain, severe (8-10) Ondansetron HCl (Zofran Inj) 4 mg IVP Q4 PRN PRN Reason: Nausea/Vomiting - Labs Labs: 05/29/17 05:30 05/29/17 05:30 PT 11.9 Seconds (9.8-13.1) 05/28/17 15:35 INR 1.1 (0.9-1.2) 05/28/17 15:35 APTT 31.1 Seconds (25.6-37.1) 05/28/17 15:35 - Constitutional Appears: Non-toxic, No Acute Distress - Head Exam Head Exam: ATRAUMATIC, NORMOCEPHALIC - Eye Exam Eye Exam: Normal appearance. absent: Conjunctival injection, Scleral icterus - ENT Exam ENT Exam: Mucous Membranes Moist, Normal Oropharynx - Respiratory Exam Respiratory Exam: NORMAL BREATHING PATTERN. absent: Accessory Muscle Use, Respiratory Distress - Cardiovascular Exam Cardiovascular Exam: RRR - GI/Abdominal Exam GI & Abdominal Exam: Distended (mild), Soft, Tenderness (epigatrium/RUQ>LUQ). absent: Guarding, Rebound - Extremities Exam Extremities Exam: absent: Calf Tenderness, Pedal Edema, Tenderness - Back Exam Back Exam: NORMAL INSPECTION. absent: CVA tenderness (L), CVA tenderness (R) - Neurological Exam Neurological Exam: Alert, Awake, Oriented x3 - Psychiatric Exam Psychiatric exam: Normal Affect, Normal Mood - Skin Skin Exam: Dry, Intact, Normal Color, Warm Assessment and Plan - Assessment and Plan (Free Text) Assessment: 36 y/o F w/ gallstone pancreatitis Plan: - NPO-Advance diet per GI recs - aggressive fluid resuscitation per GI recommendations - pain management - f/u MRCP results - f/u GI recs - serial abd exams, OOBTC, incentive spirometer - T bili trending down. Continue to trend CBC/CMP - replete electrolytes PRN - No indication for surgical intervention at this point. Pancreatitis will need to improve prior to surgery - Will continue to follow Pt discussed w/ Dr. Jyo, further recs per him Minerva Ruvalcaba, PGY2
[2017-05-29] MEDS: Potassium CL 10mEq/100ml 100 ML IVPB SCH ×2 (12:43→13:32)
--- NOTE | 2017-05-29 12:54 | CP.PCM.PCO ---
Physician Communication Note - Physician Communication Note Physician Communication Note: Pt in MRI, GI will see tomorrow, Spoke with Hospitalist
--- NOTE | 2017-05-29 14:07 | CP.PCM.PN ---
Subjective - Date & Time of Evaluation Date of Evaluation: 05/29/17 Time of Evaluation: 14:05 - Subjective Subjective: Patient seen and examined at bedside for acute pancreatitis and acute cholecystitis Patient unless distress today than yesterday Labs are improved Hemodynamically stable MRCP completed today Discussed with GI Objective - Vital Signs/Intake and Output Vital Signs (last 24 hours): Temp Pulse Resp BP Pulse Ox 98.3 F 86 18 110/72 98 05/29/17 07:33 05/29/17 07:33 05/29/17 07:33 05/29/17 07:33 05/29/17 07:33 Vital signs as documented. Gen: WDWN, cooperative, alert HEENT: NCAT, PERRL, EOMI, no erythema, exudates, gross hearing intact, no lesions Neck: Soft, supple, no lymphadenopathy, no JVD Heart: +S1S2, RRR, No MRG Lung: CTAB, No WRR Abd: soft, tenderness improved today, ND, BSx4, no HSM, no masses Ext: warm, well perfused, pedal pulses intact Neuro: AAOx3, Strength equal bilaterally UE/LE Skin: Warm, Dry, no rash Psych: Normal mood, affect with appropriate range - Medications Medications: Current Medications Acetaminophen (Tylenol 325mg Tab) 650 mg PO Q6 PRN PRN Reason: Fever >100.4 F Enoxaparin Sodium (Lovenox) 40 mg SC DAILY [facility] PRN Reason: Protocol Last Admin: 05/29/17 08:52 Dose: 40 mg Piperacillin Sod/Tazobactam (Sod 3.375 gm/ Sodium Chloride) 100 mls @ 100 mls/ hr IVPB Q6 PASHA PRN Reason: Protocol Last Admin: 05/29/17 10:53 Dose: 100 mls/hr Lactated Ringer's (Lactated Ringer's) 1,000 mls @ 200 mls/hr IV .Q5H [facility] Last Admin: 05/29/17 11:36 Dose: 200 mls/hr Morphine Sulfate (Morphine) 2 mg IVP Q4 PRN PRN Reason: Pain, moderate (4-7) Last Admin: 05/29/17 11:23 Dose: 2 mg Morphine Sulfate (Morphine) 4 mg IVP Q4 PRN PRN Reason: Pain, severe (8-10) Ondansetron HCl (Zofran Inj) 4 mg IVP Q4 PRN PRN Reason: Nausea/Vomiting - Labs Labs: 05/29/17 05:30 05/29/17 05:30 PT 11.9 Seconds (9.8-13.1) 05/28/17 15:35 INR 1.1 (0.9-1.2) 05/28/17 15:35 APTT 31.1 Seconds (25.6-37.1) 05/28/17 15:35 Assessment and Plan - Assessment and Plan (Free Text) Plan: 36 year old female no PMH presents with a 2 day history of severe sharp constant and worsening abdominal pain which began midepigastric and moved to RUQ , radiating to back. No associated nausea or emesis. Increased pain with eating , also complains of very dark sujatha urine. She states she has had this pain several times in the past and was self-limited. Pt also admits to several months of generalized itchiness and yellow stool. She states she was seen by PCP Dr. Cueva for this. Note: pt had appx 60lb weight loss using Phentermine in past 5 months. Normal WBC, afebrile. HD stable. ABD US: +cholecystitis , CBD 10MM TBILI 5.4 AST/ALT 366/501 ALP 143 URINE BILI MOD LIPASE 19,614 Pt admitted for acute gallstone pancreatitis, acute cholecystitis. Surgery and GI consulted. For MRCP in AM. ACUTE GALLSTONE PANCREATITIS Lipase 48253 on admission NPO, LR@250cc/hr Continues to have some pain, will advance once pain subsides Gastroenterology Consult: Dr. Ambriz, discussed with team Pain Control CHOLEDOCHOLITHIASIS MRCP negative for choledocholithiasis. No ERCP indicated at this time. GI consult: Dr. Ambriz, discussed with Dr. Ambriz team ACUTE CHOLECYSTITIS Surgery Consult: Dr. Rufino Alvarado Tbili 5.4 trending down +US for Cholecystitis pain control , we will await pancreatitis to subside prior to surgery ELEVATED TRANSAMINASES 2/2 acute pancreatitis and cholecystitis AST/ALT/ALP 366/501/143, trending down today monitor HYPOKALEMIA K 3.3,replete as necessary also checking magnesium and replete as necessary BMP in AM VTE ppx lovenox
--- NOTE | 2017-05-29 16:45 | CP.PCM.DIS ---
Provider - Provider Date of Admission: 05/28/17 17:30 Attending physician: Valentina Wellington DO Time Spent in preparation of Discharge (in minutes): 30 Diagnosis - Discharge Diagnosis (1) Choledocholithiasis with acute cholecystitis with obstruction Status: Acute (2) Pancreatitis, acute Status: Acute Hospital Course - Lab Results Lab Results: Most Recent Lab Values WBC 4.5 K/uL (4.8-10.8) L 05/29/17 05:30 RBC 3.86 Mil/uL (3.80-5.20) 05/29/17 05:30 Hgb 10.7 g/dL (12.0-16.0) L D 05/29/17 05:30 Hct 33.0 % (34.0-47.0) L 05/29/17 05:30 MCV 85.4 fl (81.0-99.0) 05/29/17 05:30 MCH 27.6 pg (27.0-31.0) 05/29/17 05:30 MCHC 32.3 g/dL (33.0-37.0) L 05/29/17 05:30 RDW 14.2 % (11.5-14.5) 05/29/17 05:30 Plt Count 185 K/uL (130-400) 05/29/17 05:30 MPV 9.5 fl (7.2-11.7) 05/29/17 05:30 Neut % (Auto) 71.2 % (50.0-75.0) 05/29/17 05:30 Lymph % (Auto) 21.5 % (20.0-40.0) 05/29/17 05:30 [place] % (Auto) 5.5 % (0.0-10.0) 05/29/17 05:30 Eos % (Auto) 1.2 % (0.0-4.0) 05/29/17 05:30 Baso % (Auto) 0.6 % (0.0-2.0) 05/29/17 05:30 Neut # 3.2 K/uL (1.8-7.0) 05/29/17 05:30 Lymph # 1.0 K/uL (1.0-4.3) 05/29/17 05:30 [place] # 0.2 K/uL (0.0-0.8) 05/29/17 05:30 Eos # 0.1 K/uL (0.0-0.7) 05/29/17 05:30 Baso # 0.0 K/uL (0.0-0.2) 05/29/17 05:30 Neutrophils % (Manual) 84 % (42-75) H 05/28/17 15:35 Band Neutrophils % 2 % (0-2) 05/28/17 15:35 Lymphocytes % (Manual) 8 % (20-50) L 05/28/17 15:35 Monocytes % (Manual) 4 % (0-10) 05/28/17 15:35 Eosinophils % (Manual) 2 % (0-7) 05/28/17 15:35 Platelet Estimate Normal (NORMAL) 05/28/17 15:35 Hypochromasia (manual) Slight 05/28/17 15:35 Poikilocytosis (manual Slight 05/28/17 15:35 Anisocytosis (manual) Slight 05/28/17 15:35 Microcytosis (manual) Slight 05/28/17 15:35 PT 11.9 Seconds (9.8-13.1) 05/28/17 15:35 INR 1.1 (0.9-1.2) 05/28/17 15:35 APTT 31.1 Seconds (25.6-37.1) 05/28/17 15:35 pO2 16 mm/Hg (30-55) L 05/28/17 18:41 VBG pH 7.33 (7.32-7.43) 05/28/17 18:41 VBG pCO2 49 mmHg (40-60) 05/28/17 18:41 VBG HCO3 22.2 mmol/L 05/28/17 18:41 VBG Total CO2 27.3 mmol/L (22-28) 05/28/17 18:41 VBG O2 Sat (Calc) 27.2 % (40-65) L 05/28/17 18:41 VBG Base Excess -0.7 mmol/L (0.0-2.0) L 05/28/17 18:41 VBG Potassium 3.9 mmol/L (3.6-5.2) 05/28/17 18:41 Sodium 137.0 mmol/L (132-148) 05/28/17 18:41 Chloride 107.0 mmol/L (98-107) 05/28/17 18:41 Glucose 95 mg/dL (65-105) 05/28/17 18:41 Lactate 0.9 mmol/L (0.7-2.1) 05/28/17 18:41 FiO2 21.0 % 05/28/17 18:41 Sodium 140 mmol/l (132-148) 05/29/17 05:30 Potassium 3.3 MMOL/L (3.6-5.0) L 05/29/17 05:30 Chloride 110 mmol/L (98-107) H 05/29/17 05:30 Carbon Dioxide 21 mmol/L (22-30) L 05/29/17 05:30 Anion Gap 12 (10-20) 05/29/17 05:30 BUN 5 mg/dl (7-17) L 05/29/17 05:30 Creatinine 0.6 mg/dL (0.7-1.2) L 05/29/17 05:30 Est GFR ( Amer) > 60 05/29/17 05:30 Est GFR (Non-Af Amer) > 60 05/29/17 05:30 Random Glucose 108 mg/dL (65-105) H 05/29/17 05:30 Calcium 7.8 mg/dL (8.4-10.2) L 05/29/17 05:30 Magnesium 2.0 MG/DL (1.6-2.3) 05/29/17 10:15 Total Bilirubin 1.9 mg/dl (0.2-1.3) H 05/29/17 05:30 AST 135 U/L (14-36) H D 05/29/17 05:30 ALT 292 U/L (9-52) H D 05/29/17 05:30 Alkaline Phosphatase 103 U/L (38-126) 05/29/17 05:30 Lactate Dehydrogenase 767 U/L (313-618) H 05/28/17 18:20 Total Protein 5.6 G/DL (6.3-8.2) L 05/29/17 05:30 Albumin 3.0 g/dL (3.5-5.0) L D 05/29/17 05:30 Globulin 2.6 gm/dL (2.2-3.9) 05/29/17 05:30 Albumin/Globulin Ratio 1.2 (1.0-2.1) 05/29/17 05:30 Lipase 29152 U/L (23-300) H 05/28/17 16:00 Venous Blood Potassium 3.9 mmol/L (3.6-5.2) 05/28/17 18:41 Urine Color Sujatha (YELLOW) 05/28/17 15:55 Urine Clarity Slighty-cloudy (Clear) 05/28/17 15:55 Urine pH 5.0 (5.0-8.0) 05/28/17 15:55 Ur Specific [place] 1.028 (1.003-1.030) 05/28/17 15:55 Urine Protein 100 mg/dL (NEGATIVE) 05/28/17 15:55 Urine Glucose (UA) Neg mg/dL (Normal) 05/28/17 15:55 Urine Ketones Trace mg/dL (NEGATIVE) 05/28/17 15:55 Urine Blood Negative (NEGATIVE) 05/28/17 15:55 Urine Nitrate Negative (NEGATIVE) 05/28/17 15:55 Urine Bilirubin Moderate (NEGATIVE) 05/28/17 15:55 Urine Urobilinogen 4.0 mg/dL (0.2-1.0) H 05/28/17 15:55 Ur Leukocyte Esterase Neg [place]/uL (Negative) 05/28/17 15:55 Urine RBC (Auto) 4 /hpf (0-3) H 05/28/17 15:55 Urine Microscopic WBC 5 /hpf (0-5) 05/28/17 15:55 Ur Squamous Epith Cells 6 /hpf (0-5) H 05/28/17 15:55 Urine Bacteria Rare (<OCC) 05/28/17 15:55 Blood Type O POSITIVE 05/28/17 15:35 Antibody Screen Negative 05/28/17 15:35 BBK History Checked No verified bt 05/28/17 15:35 - Hospital Course Hospital Course: 36 year old female no PMH presents with a 2 day history of severe sharp constant and worsening abdominal pain which began midepigastric and moved to RUQ , radiating to back. No associated nausea or emesis. Increased pain with eating , also complains of very dark sujatha urine. She states she has had this pain several times in the past and was self-limited. Pt also admits to several months of generalized itchiness and yellow stool. She states she was seen by PCP Dr. Cueva for this. Note: pt had appx 60lb weight loss using Phentermine in past 5 months. Normal WBC, afebrile. HD stable. ABD US: +cholecystitis , CBD 10MM TBILI 5.4 AST/ALT 366/501 ALP 143 URINE BILI MOD LIPASE 19,614 Pt admitted for acute gallstone pancreatitis, acute cholecystitis. Surgery and GI consulted. For MRCP in AM. PATIENT AMA WITHOUT WAITING TO BE SEEN AGAIN SHE HAS SOCIAL ISSUES AT HOME REGARDING LEGAL MEDIATOR PER NURSING STAFF. PT WAS INSTRUCTED TO RETURN TO ER FOR FURTHER CARE FOR CHOLECYSTITIS AMY. ACUTE GALLSTONE PANCREATITIS Lipase 52107 on admission NPO, LR@250cc/hr Continues to have some pain, will advance once pain subsides Gastroenterology Consult: Dr. Ambriz, discussed with team Pain Control CHOLEDOCHOLITHIASIS MRCP negative for choledocholithiasis. No ERCP indicated at this time. GI consult: Dr. Ambriz, discussed with Dr. Ambriz team ACUTE CHOLECYSTITIS Surgery Consult: Dr. Rufino Alvarado Tbili 5.4 trending down +US for Cholecystitis pain control , we will await pancreatitis to subside prior to surgery ELEVATED TRANSAMINASES 2/2 acute pancreatitis and cholecystitis AST/ALT/ALP 366/501/143, trending down today monitor HYPOKALEMIA K 3.3,replete as necessary also checking magnesium and replete as necessary BMP in AM VTE ppx lovenox Discharge Exam - Head Exam Additional comments: PHYSICAL EXAM UNABLE TO BE COMPLETED PATIENT DID NOT WAIT TO BE SEEN BY AUTHOR. Discharge Plan - Follow Up Plan Condition: STABLE Disposition: AGAINST MEDICAL ADVICE Instructions: Pancreatitis (DC)
== END 2017-05-29 17:02 | disposition left against medical advice (07) | DRG 207 ==
LOC: H.ER 15:00 → H.ERHOLD 17:30 → H.MEDSURG1 19:35
PROVIDERS: ADMIT Student in an Organized Health Care Education/Training Program; ATTEND Student in an Organized Health Care Education/Training Program
DX: K80.00 Calculus of gallbladder with acute cholecystitis without obstruction (principal); K85.10 Biliary acute pancreatitis without necrosis or infection; E87.6 Hypokalemia

== ENCOUNTER 2017-10-29 22:16 | Observation (INO) | payer MEDICAID, OTHER ==
[2017-10-29 22:16] VITALS: BMI 28.0
[2017-10-29] MEDS ORDERED: Sodium Chloride 0.9% 1,000 ML IV STA ×2 (23:22)
[2017-10-29] MEDS ORDERED: Morphine 4 MG/ML VIAL ONE (23:35)
--- NOTE | 2017-10-29 23:44 | ED PDOC ---
HPI: General Adult Time Seen by Provider: 10/29/17 22:42 Chief Complaint (Nursing): Abdominal Pain History Per: Patient Additional Complaint(s): Pt. states for the past 2 weeks she's had progressively worsening RLQ abdominal pain associated with multiple episodes of non-bloody vomiting and diarrhea. Pt. states pain radiates to her R shoulder. Pt. states in 05/2017 she had a cholecystectomy done and was also dx with pancreatitis. Reports that she has since been admitted 2 more times in [facility] for her pancreatitis. Denies fever, chest pain, SOB, melena, hematochezia, BRBPR, hematememsis, recent travel, sick contacts. Past Medical History Reviewed: Historical Data, Nursing Documentation, Vital Signs Vital Signs: Last Vital Signs Temp 98.1 F 10/30/17 04:06 Pulse 88 10/30/17 04:06 Resp 16 10/30/17 04:06 BP 125/71 10/30/17 04:06 Pulse Ox 98 10/30/17 04:06 - Medical History PMH: Anemia Denies: HIV, Chronic Kidney Disease - Surgical History Surgical History: Cholecystectomy Denies: Appendectomy - Family History Family History: States: No Known Family Hx - Home Medications Home Medications: Ambulatory Orders Medication Instructions Recorded No Known Home Med 05/28/17 - Allergies Allergies/Adverse Reactions: Allergies Allergy/AdvReac Type Severity Reaction Status Date / Time No Known Allergies Allergy Verified 10/29/17 22:31 Review of Systems ROS Statement: Except As Marked, All Systems Reviewed And Found Negative Gastrointestinal: Positive for: Nausea, Vomiting, Abdominal Pain, Diarrhea Physical Exam - Physical Exam Appears: Positive for: Well, Non-toxic, In Acute Distress (painful distress) Skin: Positive for: Normal Color, Warm. Negative for: Rash, Jaundice Eye Exam: Positive for: Normal appearance, EOMI, PERRL. Negative for: Scleral icterus Neck: Positive for: Normal, Painless ROM Cardiovascular/Chest: Positive for: Tachycardia. Negative for: Murmur Respiratory: Positive for: CNT, Normal Breath Sounds Gastrointestinal/Abdominal: Positive for: Normal Exam, Bowel Sounds, Soft, Tenderness (moderate RLQ tenderness), Other (negative sy's sign) Back: Positive for: Normal Inspection. Negative for: L CVA Tenderness, R CVA Tenderness Neurologic/Psych: Positive for: Alert, Oriented. Negative for: Aphasia, Facial Droop - Laboratory Results Result Diagrams: 10/29/17 23:20 10/29/17 23:20 - ECG O2 Sat by Pulse Oximetry: 100 - Progress ED Course And Treament: Labs, CT abd/pelvis w/ IV contrast, morphine 4mg IV, zofran 4mg IV, IV NS bolus x 2, VBG ordered. 0200 Pt. reports pain has improved. Pt. in no distress. 0230 CT abd/pelvis w/ IV contrast: 1. Involuting or ruptured RIGHT ovarian follicle/ cyst. 2. Borderline enlarged appendix. No definite inflammation. Clinical correlation is needed. 3. Mild biliary ductal dilatation. Correlate with laboratory values. Consider MRCP. 4. Possible pelvic congestion syndrome. Clinical correlation is needed. Case d/w Dr. Capone who will evaluate pt. in ED. Pt. kept NPO. 0300 TVUS ordered. Pending surgery eval. Pt. informed of results and plan. No distress. NPO stressed. 0316 Dr. Capone, college president, in ED evaluating pt. [address] Capone who spoke with Dr. Goodwin pt. will be going to OR today. Case d/w Dr. Puckett, hospitalist (pt.'s PMD is Dr. Cueva) and arrangements made for admission. Disposition - Clinical Impression Clinical Impression: Appendicitis - Patient ED Disposition Is Patient to be Admitted: Yes - Disposition Disposition Time: 06:00 Condition: STABLE
[2017-10-29 23:58] LABS: VENOUS BLOOD GAS BASE EXCESS -1.2 mmol/L (0.0-2.0); VENOUS BLOOD GAS PCO2 39 mmHg (40-60); VENOUS BLOOD GAS PO2 34 mm/Hg (30-55); VENOUS BLOOD PH 7.39 (7.32-7.43)
[2017-10-30 00:23] LABS: SQUAMOUS EPITHIAL 2 /hpf (0-5); URINE BACTERIA RARE (<OCC); URINE BILIRUBIN NEGATIVE (NEGATIVE); URINE BLOOD NEGATIVE (NEGATIVE); URINE CLARITY SLIGHTY-CLOUDY (Clear); URINE COLOR YELLOW (YELLOW); URINE GLUCOSE (UA) NEG (Normal); URINE LEUKOCYTE ESTERASE NEG Leu/uL (Negative); URINE PROTEIN NEGATIVE (NEGATIVE); URINE UROBILINOGEN 0.2-1.0 mg/dL (0.2-1.0)
[2017-10-30 00:25] LABS: BASO % 0.4 % (0.0-2.0); EOS # 0.1 K/uL (0.0-0.7); EOS % 0.8 % (0.0-4.0); HEMOGLOBIN 12.3 g/dL (12.0-16.0); LYMPH # 0.6 K/uL (1.0-4.3); LYMPH % 7.3 % (20.0-40.0); MEAN CELL VOLUME 84.6 fl (81.0-99.0); MEAN CORPUSCULAR HGB CONC 33.1 g/dL (33.0-37.0); MEAN PLATELET VOLUME 9.1 fl (7.2-11.7); MONO # 0.5 K/uL (0.0-0.8); MONO % 7.1 % (0.0-10.0); NEUT # 6.5 K/uL (1.8-7.0); NEUT % 84.4 % (50.0-75.0); NRBC % 0.1 % (0.0-0.0); PLATELET COUNT 234 K/uL (130-400); RBC 4.37 Mil/uL (3.80-5.20); RED CELL DISTRIBUTION WIDTH 14.4 % (11.5-14.5)
[2017-10-30 00:30] LABS: ALB/GLOB RATIO 1.1 (1.0-2.1); ALBUMIN 3.9 g/dL (3.5-5.0); ALT/SGPT 32 U/L (9-52); AST/SGOT 31 U/L (14-36); BLOOD UREA NITROGEN 12 mg/dl (7-17); CALCIUM 8.6 mg/dL (8.4-10.2); GFR AFRICAN-AMERICAN > 60; GFR NON-AFRICAN AMERICAN > 60; LIPASE 103 U/L (23-300)
[2017-10-30 00:36] LABS: WHITE BLOOD COUNT 7.7 K/uL (4.8-10.8)
[2017-10-30 01:00] LABS: LYMPHOCYTE 23 % (20-50); MONOCYTE 1 % (0-10); NEUTROPHIL 76 % (42-75); TOTAL CELLS COUNTED 100
[2017-10-30 01:02] LABS: PLATELET ESTIMATE NORMAL (NORMAL)
[2017-10-30 01:09] LABS: BARBITURATES, UR NEGATIVE (NEGATIVE); BENZODIAZEPINES, UR NEGATIVE (NEGATIVE); OPIATES, UR NEGATIVE (NEGATIVE); PHENCYCLIDINE, UR NEGATIVE (NEGATIVE)
[2017-10-30] MEDS ORDERED: Iohexol 300 100 ML IJ ONE (01:22)
[2017-10-30] MEDS ORDERED: Sodium Chloride 0.9% 100 ML ONE (01:23)
--- NOTE | 2017-10-30 02:29 | CT ---
EXAM: CT Abdomen and Pelvis With Intravenous Contrast CLINICAL HISTORY: 37 years old, female; Pain; Abdominal pain; Localized; Right lower quadrant (rlq); Prior surgery; Surgery date: 6+ months; Surgery type: Gall bladder removed. ; Patient HX: Pt states she has chronic pancreatitis; Additional info: Rlq pain; V/d; HX of pancreatitis TECHNIQUE: Axial computed tomography images of the abdomen and pelvis with intravenous contrast. All CT scans at this facility use one or more dose reduction techniques, viz.: automated exposure control; ma/kV adjustment per patient size (including targeted exams where dose is matched to indication; i.e. head); or iterative reconstruction technique. Coronal and sagittal reformatted images were created and reviewed. CONTRAST: 95 mL of OMNI 300 administered intravenously. COMPARISON: No relevant prior studies available. FINDINGS: Lower thorax: Minimal atelectasis. ABDOMEN: Liver: Mild intrahepatic ductal dilatation. Gallbladder and bile ducts: Cholecystectomy. Mild dilatation of common bile duct. Pancreas: No ductal dilation. No mass. Spleen: No splenomegaly. Adrenals: No mass. Kidneys and ureters: No mass. No hydronephrosis. Stomach and bowel: No definite mural thickening. No obstruction. Appendix: Borderline enlarged appendix, 6-7 mm in diameter. No definite associated inflammatory stranding. PELVIS: Bladder: Unremarkable. Reproductive: 2.5 x 1.5 x 2.0 cm peripherally enhancing hypodensity with crenulated margins within RIGHT ovary. ABDOMEN and PELVIS: Intraperitoneal space: Trace free fluid within abdomen. Small free fluid within pelvis. No free air. Bones/joints: No acute fracture. Soft tissues: Linear scarring within abdominal wall. Tiny umbilical hernia containing fat. Vasculature: Prominent vessels within left hemipelvis. No aneurysm. Lymph nodes: No pathologically enlarged lymph nodes. IMPRESSION: 1. Involuting or ruptured RIGHT ovarian follicle/cyst. 2. Borderline enlarged appendix. No definite inflammation. Clinical correlation is needed. 3. Mild biliary ductal dilatation. Correlate with laboratory values. Consider MRCP. 4. Possible pelvic congestion syndrome. Clinical correlation is needed. 5. Incidental/non-acute findings are described above.
--- NOTE | 2017-10-30 03:43 | CP.PCM.CON ---
History of Present Illness - History of Present Illness History of Present Illness: SURGERY CONSULT NOTE FOR DR. COLLINS 37F presents with lower abdominal pain that started yesterday suddenly. She states the pain started suddenly and she was not doing anything in particular that may have triggered the pain. Pain is located in the infra-umbilical region and radiates to the right lower quadrant. She has never had this type of pain before. She admits to nausea and vomiting, she does not tolerate diet, she also admits to multiple episode of diarrhea. She states she is scared to eat becuase she thinks the pain may get worse. Her last menstrual period was two weeks ago. PMH: right cervical enlarged lymph node, gallstone pancreatic PSH: Lap cholecystectomy Social: denies tobacco, alcohol and illicit drugs Allergies: NKDA Past Patient History - Infectious Disease Hx of Infectious Diseases: None - Past Medical History & Family History Past Medical History?: Yes - Past Social History Smoking Status: Never Smoked - CARDIAC Hx Cardiac Disorders: No - PULMONARY Hx Respiratory Disorders: No - NEUROLOGICAL Hx Neurological Disorder: No - HEENT Hx HEENT Problems: No - RENAL Hx Chronic Kidney Disease: No - ENDOCRINE/METABOLIC Hx Endocrine Disorders: No - HEMATOLOGICAL/ONCOLOGICAL Hx Anemia: Yes Hx Human Immunodeficiency Virus (HIV): No - INTEGUMENTARY Hx Dermatological Problems: No - MUSCULOSKELETAL/RHEUMATOLOGICAL Hx Musculoskeletal Disorders: No Hx Falls: No - GASTROINTESTINAL Hx Gastrointestinal Disorders: No - GENITOURINARY/GYNECOLOGICAL Hx Genitourinary Disorders: No - PSYCHIATRIC Hx Psychophysiologic Disorder: No Hx Substance Use: No - SURGICAL HISTORY Hx Appendectomy: No Hx Cholecystectomy: Yes - ANESTHESIA Hx Anesthesia: No Meds Allergies/Adverse Reactions: Allergies Allergy/AdvReac Type Severity Reaction Status Date / Time No Known Allergies Allergy Verified 10/29/17 22:31 Physical Exam - Constitutional Appears: Other (uncomfortable due to pain) - Eye Exam Eye Exam: EOMI, PERRL - ENT Exam ENT Exam: Mucous Membranes Moist - Respiratory Exam Respiratory Exam: Clear to Auscultation Bilateral, NORMAL BREATHING PATTERN - Cardiovascular Exam Cardiovascular Exam: REGULAR RHYTHM, +S1, +S2 - GI/Abdominal Exam GI & Abdominal Exam: Soft, Tenderness (moderate tenderness suprapubic and right lower quadrant). absent: Firm, Guarding, Rebound, Rigid - Neurological Exam Neurological exam: Alert, Oriented x3 - Psychiatric Exam Psychiatric exam: Normal Affect, Normal Mood - Skin Skin Exam: Dry, Intact, Normal Color, Warm Results - Vital Signs Recent Vital Signs: Last Vital Signs Temp 98.4 F 10/29/17 22:28 Pulse 107 H 10/29/17 22:28 Resp 22 10/29/17 22:28 BP 124/85 10/29/17 22:28 Pulse Ox 100 10/30/17 03:16 - Labs Result Diagrams: 10/29/17 23:20 10/29/17 23:20 Labs: Laboratory Results - last 24 hr 10/29/17 10/29/17 10/29/17 23:20 23:20 23:20 WBC 7.7 D RBC 4.37 Hgb 12.3 Hct 37.0 MCV 84.6 MCH 28.0 MCHC 33.1 RDW 14.4 Plt Count 234 MPV 9.1 Neut % (Auto) 84.4 H Lymph % (Auto) 7.3 L [place] % (Auto) 7.1 Eos % (Auto) 0.8 Baso % (Auto) 0.4 Neut # (Auto) 6.5 Lymph # (Auto) 0.6 L [place] # (Auto) 0.5 Eos # (Auto) 0.1 Baso # (Auto) 0.0 Neutrophils % (Manual) 76 H Lymphocytes % (Manual) 23 Monocytes % (Manual) 1 Platelet Estimate Normal RBC Morphology Normal pO2 VBG pH VBG pCO2 VBG HCO3 VBG Total CO2 VBG O2 Sat (Calc) VBG Base Excess VBG Potassium Glucose Lactate FiO2 Sodium 140 Potassium 3.9 Chloride 103 Carbon Dioxide 23 Anion Gap 18 BUN 12 Creatinine 0.6 L Est GFR ( Amer) > 60 Est GFR (Non-Af Amer) > 60 Random Glucose 100 Calcium 8.6 Total Bilirubin 0.4 AST 31 ALT 32 Alkaline Phosphatase 90 Total Protein 7.5 Albumin 3.9 Globulin 3.5 Albumin/Globulin Ratio 1.1 Lipase 103 Venous Blood Potassium Urine Color Urine Clarity Urine pH Ur Specific [place] Urine Protein Urine Glucose (UA) Urine Ketones Urine Blood Urine Nitrate Urine Bilirubin Urine Urobilinogen Ur Leukocyte Esterase Urine RBC (Auto) Urine Microscopic WBC Ur Squamous Epith Cells Urine Bacteria Urine Opiates Screen Negative Urine Methadone Screen Negative Ur Barbiturates Screen Negative Ur Phencyclidine Scrn Negative Ur Amphetamines Screen Negative U Benzodiazepines Scrn Negative U Oth Cocaine Metabols Negative U Cannabinoids Screen Negative 10/29/17 10/29/17 23:20 23:55 WBC RBC Hgb Hct MCV MCH MCHC RDW Plt Count MPV Neut % (Auto) Lymph % (Auto) [place] % (Auto) Eos % (Auto) Baso % (Auto) Neut # (Auto) Lymph # (Auto) [place] # (Auto) Eos # (Auto) Baso # (Auto) Neutrophils % (Manual) Lymphocytes % (Manual) Monocytes % (Manual) Platelet Estimate RBC Morphology pO2 34 VBG pH 7.39 VBG pCO2 39 L VBG HCO3 23.1 VBG Total CO2 24.8 VBG O2 Sat (Calc) 73.3 H VBG Base Excess -1.2 L VBG Potassium 3.8 Glucose 98 Lactate 1.0 FiO2 21.0 Sodium 137.0 Potassium Chloride 106.0 Carbon Dioxide Anion Gap BUN Creatinine Est GFR ( Amer) Est GFR (Non-Af Amer) Random Glucose Calcium Total Bilirubin AST ALT Alkaline Phosphatase Total Protein Albumin Globulin Albumin/Globulin Ratio Lipase Venous Blood Potassium 3.8 Urine Color Yellow Urine Clarity Slighty-cloudy Urine pH 6.0 Ur Specific [place] 1.023 Urine Protein Negative Urine Glucose (UA) Neg Urine Ketones Negative Urine Blood Negative Urine Nitrate Negative Urine Bilirubin Negative Urine Urobilinogen 0.2-1.0 Ur Leukocyte Esterase Neg Urine RBC (Auto) 2 Urine Microscopic WBC 1 Ur Squamous Epith Cells 2 Urine Bacteria Rare Urine Opiates Screen Urine Methadone Screen Ur Barbiturates Screen Ur Phencyclidine Scrn Ur Amphetamines Screen U Benzodiazepines Scrn U Oth Cocaine Metabols U Cannabinoids Screen Assessment & Plan - Assessment and Plan (Free Text) Assessment: 37F with abdominal pain likely 2/2 right [address] ovarian cysts. CT also showed borderline enlarged appendix with no inflammation Plan: - NPO, IVF - Pain control - Follow up transvaginal ultrasound - OBGYN Consult Further recs discuss with Dr. Buddy Capone, PGY2
[2017-10-30] MEDS ORDERED: Sodium Chloride 0.9% 1,000 ML IV SCH ×2 (04:00→07:15)
[2017-10-30] MEDS ORDERED: Morphine 4 MG/ML VIAL ONE (04:16)
[2017-10-30 04:55] LABS: INR 1.1 (0.9-1.2); PROTHROMBIN TIME 11.7 Seconds (9.8-13.1)
--- NOTE | 2017-10-30 05:08 | US ---
EXAM: US Pelvis, Transvaginal CLINICAL HISTORY: 37 years old, female; Pain; Abdominal pain and pelvic pain; Other: Abdominal/pelvic; Additional info: R sided ruptured ovarian cyst TECHNIQUE: Real-time transvaginal pelvic ultrasound (complete) with image documentation. Transvaginal imaging was used for better evaluation of the endometrium and adnexa. COMPARISON: CT - ABD PELVIS IV CONTRAST ONLY 2017-10-30 01:32 FINDINGS: Uterus/cervix: Uterus measures 8.7 x 3.7 x 5.4 cm in size. No myometrial mass. Endometrium: 0.9 cm in thickness. Probable nabothian cyst. Right ovary: 3.6 x 2.5 x 3.4 cm in size. No mass. Normal flow. Left ovary: 2.6 x 2.9 x 1.6 cm in size. No mass. Normal flow. Free fluid: Small free fluid within pelvis. Bladder: Empty bladder which cannot be evaluated with this probe. IMPRESSION: 1. Small pelvic ascites. 2. Incidental/non-acute findings are described above.
--- NOTE | 2017-10-30 06:10 | CP.PCM.HP ---
History of Present Illness - History of Present Illness History of Present Illness: PMD: Dr Cueva Chief Complaint: Abdominal pain The patient was seen and examined in the ED HPI: 37 years old female with Hx of recently being treated for UTI, Chronic Pancreatitis, comes with worsening of a 2 weeks of RLQ abdominal pain. This has been very sharp, continuous over the past 2 days. radiating across the mid and lower abdomen, right shoulder and the back; associated with nausea, vomits, diarrhea and palpitation. No fever, SOB, coughing, Melena nor dysuria. PMH: Anemia; Chronic Pancreatitis; UTI; Right cervical Lymphadenopathy for Bx PSH: Cholecystectomy; Bx of the Thyroids SH: Never Smoked; No illegal drug use; No Alcohol; FH: States: No Known Family Hx Allergies: NKDA Medication: Denies Present on Admission - Present on Admission Any Indicators Present on Admission: No History of DVT/PE: No History of Uncontrolled Diabetes: No Urinary Catheter: No Decubitus Ulcer Present: No Review of Systems - Constitutional Constitutional: Headache. absent: Anorexia, Chills, Fever, Lethargy, Malaise - EENT Eyes: Requires Corrective Lenses. absent: Diplopia, Floaters, Sees Flashes Ears: absent: Decreased Hearing, Ear Discharge, Ear Pain Nose/Mouth/Throat: absent: Epistaxis, Nasal Congestion, Sinus Pain, Sinus Pressure Additional comments: Right Cervical Large Lymph node - Cardiovascular Cardiovascular: Palpitations. absent: Chest Pain, Dyspnea, Edema - Respiratory Respiratory: absent: Cough, Dyspnea, Wheezing, Stridor - Gastrointestinal Gastrointestinal: Abdominal Pain, Diarrhea, Nausea, Vomiting. absent: Constipation - Genitourinary Genitourinary: absent: Dysuria, Flank Pain, Hematuria, Urinary Frequency - Musculoskeletal Musculoskeletal: absent: Arthralgias, Joint Swelling, Muscle Weakness, Numbness - Integumentary Integumentary: absent: Pruritus, Rash, Skin Ulcer, Sores, Striae, Swelling - Neurological Neurological: Headaches. absent: Confusion, Dizziness, Focal Weakness, Loss of Vision, Weakness - Psychiatric Psychiatric: absent: Anxiety, Depression, Panic Attacks - Endocrine Endocrine: absent: Palpitations, Polydipsia, Polyphagia, Polyuria - Hematologic/Lymphatic Hematologic: absent: Easy Bleeding, Easy Bruising Past Patient History - Infectious Disease Hx of Infectious Diseases: None - Past Medical History & Family History Past Medical History?: Yes - Past Social History Smoking Status: Never Smoked Chewing Tobacco Use: No Cigar Use: No Alcohol: None Home Situation {Lives}: With Family - CARDIAC Hx Cardiac Disorders: No - PULMONARY Hx Respiratory Disorders: No - NEUROLOGICAL Hx Neurological Disorder: No - HEENT Hx HEENT Problems: No - RENAL Hx Chronic Kidney Disease: No - ENDOCRINE/METABOLIC Hx Endocrine Disorders: No - HEMATOLOGICAL/ONCOLOGICAL Hx Anemia: Yes Hx Human Immunodeficiency Virus (HIV): No - INTEGUMENTARY Hx Dermatological Problems: No - MUSCULOSKELETAL/RHEUMATOLOGICAL Hx Musculoskeletal Disorders: No Hx Falls: No - GASTROINTESTINAL Hx Gastrointestinal Disorders: No - GENITOURINARY/GYNECOLOGICAL Hx Genitourinary Disorders: No - PSYCHIATRIC Hx Psychophysiologic Disorder: No Hx Substance Use: No - SURGICAL HISTORY Hx Appendectomy: No Hx Cholecystectomy: Yes - ANESTHESIA Hx Anesthesia: Yes Hx Anesthesia Reactions: No Meds Allergies/Adverse Reactions: Allergies Allergy/AdvReac Type Severity Reaction Status Date / Time No Known Allergies Allergy Verified 10/29/17 22:31 Physical Exam - Constitutional Appears: No Acute Distress - Head Exam Head Exam: ATRAUMATIC, NORMAL INSPECTION, NORMOCEPHALIC - Eye Exam Eye Exam: EOMI, Normal appearance Pupil Exam: NORMAL ACCOMODATION, PERRL - ENT Exam ENT Exam: Mucous Membranes Moist, Normal Exam, Normal External Ear Exam, Normal Oropharynx - Neck Exam Neck exam: Positive for: Full Rom, Normal Inspection Additional comments: Right cervical lymph node 3cm , not attached to skin, movable and nontender - Respiratory Exam Respiratory Exam: Clear to Auscultation Bilateral. absent: Rales, Rhonchi, Wheezes - Cardiovascular Exam Cardiovascular Exam: REGULAR RHYTHM, RRR, +S1, +S2. absent: Gallop - GI/Abdominal Exam Additional comments: Flat, soft, +ve bowel sounds, tender at the RLQ and at th epelvic region, no guarding, no rebound tenderness - Rectal Exam Rectal Exam: Deferred - Extremities Exam Extremities exam: Positive for: full ROM, normal inspection. Negative for: calf tenderness, pedal edema - Back Exam Back exam: NORMAL INSPECTION. absent: CVA tenderness (L), CVA tenderness (R) - Neurological Exam Neurological exam: Alert, CN II-XII Intact, Oriented x3, Reflexes Normal - Psychiatric Exam Psychiatric exam: Normal Affect, Normal Mood - Skin Skin Exam: Dry, Intact, Normal Color, Warm Results - Vital Signs Recent Vital Signs: Last Vital Signs Temp 98.1 F 10/30/17 04:06 Pulse 88 10/30/17 04:06 Resp 16 10/30/17 04:06 BP 125/71 10/30/17 04:06 Pulse Ox 98 10/30/17 04:06 - Labs Result Diagrams: 10/29/17 23:20 10/29/17 23:20 Labs: Laboratory Results - last 24 hr 10/29/17 10/29/17 10/29/17 23:20 23:20 23:20 WBC 7.7 D RBC 4.37 Hgb 12.3 Hct 37.0 MCV 84.6 MCH 28.0 MCHC 33.1 RDW 14.4 Plt Count 234 MPV 9.1 Neut % (Auto) 84.4 H Lymph % (Auto) 7.3 L [place] % (Auto) 7.1 Eos % (Auto) 0.8 Baso % (Auto) 0.4 Neut # (Auto) 6.5 Lymph # (Auto) 0.6 L [place] # (Auto) 0.5 Eos # (Auto) 0.1 Baso # (Auto) 0.0 Neutrophils % (Manual) 76 H Lymphocytes % (Manual) 23 Monocytes % (Manual) 1 Platelet Estimate Normal RBC Morphology Normal PT INR APTT pO2 VBG pH VBG pCO2 VBG HCO3 VBG Total CO2 VBG O2 Sat (Calc) VBG Base Excess VBG Potassium Glucose Lactate FiO2 Sodium 140 Potassium 3.9 Chloride 103 Carbon Dioxide 23 Anion Gap 18 BUN 12 Creatinine 0.6 L Est GFR ( Amer) > 60 Est GFR (Non-Af Amer) > 60 Random Glucose 100 Calcium 8.6 Total Bilirubin 0.4 AST 31 ALT 32 Alkaline Phosphatase 90 Total Protein 7.5 Albumin 3.9 Globulin 3.5 Albumin/Globulin Ratio 1.1 Lipase 103 Venous Blood Potassium Urine Color Urine Clarity Urine pH Ur Specific [place] Urine Protein Urine Glucose (UA) Urine Ketones Urine Blood Urine Nitrate Urine Bilirubin Urine Urobilinogen Ur Leukocyte Esterase Urine RBC (Auto) Urine Microscopic WBC Ur Squamous Epith Cells Urine Bacteria Urine Opiates Screen Negative Urine Methadone Screen Negative Ur Barbiturates Screen Negative Ur Phencyclidine Scrn Negative Ur Amphetamines Screen Negative U Benzodiazepines Scrn Negative U Oth Cocaine Metabols Negative U Cannabinoids Screen Negative 10/29/17 10/29/17 10/30/17 23:20 23:55 04:10 WBC RBC Hgb Hct MCV MCH MCHC RDW Plt Count MPV Neut % (Auto) Lymph % (Auto) [place] % (Auto) Eos % (Auto) Baso % (Auto) Neut # (Auto) Lymph # (Auto) [place] # (Auto) Eos # (Auto) Baso # (Auto) Neutrophils % (Manual) Lymphocytes % (Manual) Monocytes % (Manual) Platelet Estimate RBC Morphology PT 11.7 INR 1.1 APTT 30.0 pO2 34 VBG pH 7.39 VBG pCO2 39 L VBG HCO3 23.1 VBG Total CO2 24.8 VBG O2 Sat (Calc) 73.3 H VBG Base Excess -1.2 L VBG Potassium 3.8 Glucose 98 Lactate 1.0 FiO2 21.0 Sodium 137.0 Potassium Chloride 106.0 Carbon Dioxide Anion Gap BUN Creatinine Est GFR ( Amer) Est GFR (Non-Af Amer) Random Glucose Calcium Total Bilirubin AST ALT Alkaline Phosphatase Total Protein Albumin Globulin Albumin/Globulin Ratio Lipase Venous Blood Potassium 3.8 Urine Color Yellow Urine Clarity Slighty-cloudy Urine pH 6.0 Ur Specific [place] 1.023 Urine Protein Negative Urine Glucose (UA) Neg Urine Ketones Negative Urine Blood Negative Urine Nitrate Negative Urine Bilirubin Negative Urine Urobilinogen 0.2-1.0 Ur Leukocyte Esterase Neg Urine RBC (Auto) 2 Urine Microscopic WBC 1 Ur Squamous Epith Cells 2 Urine Bacteria Rare Urine Opiates Screen Urine Methadone Screen Ur Barbiturates Screen Ur Phencyclidine Scrn Ur Amphetamines Screen U Benzodiazepines Scrn U Oth Cocaine Metabols U Cannabinoids Screen - Imaging and Cardiology Trans Vaginal US Status: Report reviewed by me Additional comment: EXAM: US Pelvis, Transvaginal FINDINGS: Uterus/cervix: Uterus measures 8.7 x 3.7 x 5.4 cm in size. No myometrial mass. Endometrium: 0.9 cm in thickness. Probable nabothian cyst. Right ovary: 3.6 x 2.5 x 3.4 cm in size. No mass. Normal flow. Left ovary: 2.6 x 2.9 x 1.6 cm in size. No mass. Normal flow. Free fluid: Small free fluid within pelvis. Bladder: Empty bladder which cannot be evaluated with this probe. IMPRESSION: 1. Small pelvic ascites. 2. Incidental/non-acute findings are described above. CT scan - abdomen Status: Report reviewed by me Additional comment: EXAM: CT Abdomen and Pelvis With Intravenous Contrast No relevant prior studies available. FINDINGS: Lower thorax: Minimal atelectasis. ABDOMEN: Liver: Mild intrahepatic ductal dilatation. Gallbladder and bile ducts: Cholecystectomy. Mild dilatation of common bile duct. Pancreas: No ductal dilation. No mass. Spleen: No splenomegaly. Adrenals: No mass. Kidneys and ureters: No mass. No hydronephrosis. Stomach and bowel: No definite mural thickening. No obstruction. Appendix: Borderline enlarged appendix, 6-7 mm in diameter. No definite associated inflammatory stranding. PELVIS: Bladder: Unremarkable. Reproductive: 2.5 x 1.5 x 2.0 cm peripherally enhancing hypodensity with crenulated margins within RIGHT ovary. ABDOMEN and PELVIS: Intraperitoneal space: Trace free fluid within abdomen. Small free fluid within pelvis. No free air. Bones/joints: No acute fracture. Soft tissues: Linear scarring within abdominal wall. Tiny umbilical hernia containing fat. Vasculature: Prominent vessels within left hemipelvis. No aneurysm. Lymph nodes: No pathologically enlarged lymph nodes. IMPRESSION: 1. Involuting or ruptured RIGHT ovarian follicle/cyst. 2. Borderline enlarged appendix. No definite inflammation. Clinical correlation is needed. 3. Mild biliary ductal dilatation. Correlate with laboratory values. Consider MRCP. 4. Possible pelvic congestion syndrome. Clinical correlation is needed. 5. Incidental/non-acute findings are described above. Assessment & Plan - Assessment and Plan (Free Text) Assessment: #. Acute Appendicitis #. Right Cervical Lymphadenopathy #. Involuted or ruptured Ovarian Cyst Plan: 37 years old female comes with worsening of a 2 weeks of RLQ abdominal pain, sharp, continuous over the past 2 days, radiating across the mid and lower abdomen, right shoulder and the back; associated with nausea, vomits, diarrhea and palpitation. No fever, SOB, coughing, Melena nor dysuria. #. Acute Appendicitis - Consult Dr Goodwin - NPO - Zosyn - IV fluids - Pain management #. Right Cervical Lymphadenopathy - For Biopsy OP #. Involuted or ruptured Ovarian Cyst - Dr Goodwin Surgery on consult - Patient due for Surgery #. DVT Prophylaxis post surgery - Lovenox #. Code Status: Full This patient has no cardiac nor respiratory hx. She is Cleared for Surgery with General anesthesia with mild to moderate cardiac risk Pascual Puckett MD - Date & Time Date: 10/30/17 Time: 06:10
[2017-10-30] MEDS: Piperacillin/Tazobact 3.375 GM in Sodium Chloride 0.9% 100 ML IVPB STA ×2 (09:55→16:32)
[2017-10-30] MEDS: Piperacillin/Tazobact 3.375 GM in Sodium Chloride 0.9% 100 ML IVPB SCH ×2 (09:56→16:33)
[2017-10-30] MEDS ORDERED: Lidocaine 1% Inj (20ml) ONE (10:05)
[2017-10-30] MEDS ORDERED: Bupivacaine 0.5% Inj(30mL) ONE (10:05)
[2017-10-30] MEDS ORDERED: Sodium Chloride 0.9% 1,000 ML IV ONE ×3 (10:17→11:10)
[2017-10-30] MEDS ORDERED: Succinylcholine 200 mg/10 ml Inj IV ONE (10:19)
[2017-10-30] MEDS ORDERED: Propofol 10 mg/ml Inj (20 ML) ONE (10:19)
[2017-10-30] MEDS ORDERED: Midazolam 2 MG/2 ML VIAL ONE (10:19)
[2017-10-30] MEDS ORDERED: Rocuronium 10 mg/ml (5 ml) ONE (10:19)
[2017-10-30] MEDS ORDERED: Dexamethasone 4 mg/1 ml ONE (10:46)
[2017-10-30] MEDS ORDERED: Neostigmine 1:1000 (1 mg/ml) Inj ONE (11:03)
[2017-10-30] MEDS ORDERED: Oxycodone/Acetaminophen 5/325 mg Tab PO PRN (11:30)
--- NOTE | 2017-10-30 11:30 | PCM.SURG1 ---
Surgeon's Initial Post Op Note - Surgeon's Notes Surgeon: Buddy [employer] Cleaner: Estelita Pre-Operative Diagnosis: appendicitis Operative Findings: appendicitis Post-Operative Diagnosis: appendicitis Operation Performed: Laparoscopic appendectomy Specimen/Specimens Removed: appendix Estimated Blood Loss: EBL {In ML}: 5 Date of Surgery/Procedure: 10/30/17 Time of Surgery/Procedure: 10:30
--- NOTE | 2017-10-30 11:31 | CP.PCM.PN ---
Subjective - Date & Time of Evaluation Date of Evaluation: 10/30/17 Time of Evaluation: 11:31 - Subjective Subjective: SURGERY PROGRESS NOTE 37F s/p appendectomy. If tolerating diet then clear for DC this afternoon. Objective - Vital Signs/Intake and Output Vital Signs (last 24 hours): Temp Pulse Resp BP Pulse Ox 98.4 F 95 H 20 106/76 96 10/30/17 07:50 10/30/17 07:50 10/30/17 08:37 10/30/17 07:50 10/30/17 07:50 Intake and Output: 10/30/17 10/30/17 06:59 18:59 Intake Total 500 Balance 500 - Medications Medications: Current Medications Enoxaparin Sodium (Lovenox) 40 mg SC DAILY PASHA PRN Reason: Protocol Sodium Chloride (Sodium Chloride 0.9%) 1,000 mls @ 150 mls/hr IV .Q6H40M PASHA Stop: 10/31/17 07:09 Last Admin: 10/30/17 09:57 Dose: 150 mls/hr Piperacillin Sod/Tazobactam (Sod 3.375 gm/ Sodium Chloride) 100 mls @ 100 mls/ hr IVPB Q6 PASHA PRN Reason: Protocol Last Admin: 10/30/17 09:56 Dose: 100 mls/hr Morphine Sulfate (Morphine) 4 mg IVP Q4 PRN PRN Reason: Pain, severe (8-10) Ondansetron HCl (Zofran Inj) 4 mg IVP Q4 PRN PRN Reason: Nausea/Vomiting - Labs Labs: 10/29/17 23:20 10/29/17 23:20 PT 11.7 Seconds (9.8-13.1) 10/30/17 04:10 INR 1.1 (0.9-1.2) 10/30/17 04:10 APTT 30.0 Seconds (25.6-37.1) 10/30/17 04:10
[2017-10-30] MEDS: HYDROmorphone 0.5 mg/0.5 ml ISec IVP PRN ×4 (11:32→12:20)
[2017-10-30] MEDS ORDERED: HYDROmorphone 0.5 mg/0.5 ml ISec ONE (11:33)
[2017-10-30 16:27] VITALS: RESP 20
[2017-10-30 16:35] VITALS: BP 113/76; PULSE 99; TEMP 97.4; O2SAT 96
--- NOTE | 2017-10-30 16:37 | CP.PCM.DIS ---
Provider - Provider Date of Admission: 10/30/17 06:04 Attending physician: Pascual Puckett Primary care physician: Dr. Cueva Consults: surgery consult Time Spent in preparation of Discharge (in minutes): 15 Hospital Course - Lab Results Lab Results: Most Recent Lab Values WBC 7.7 K/uL (4.8-10.8) D 10/29/17 23:20 RBC 4.37 Mil/uL (3.80-5.20) 10/29/17 23:20 Hgb 12.3 g/dL (12.0-16.0) 10/29/17 23:20 Hct 37.0 % (34.0-47.0) 10/29/17 23:20 MCV 84.6 fl (81.0-99.0) 10/29/17 23:20 MCH 28.0 pg (27.0-31.0) 10/29/17 23:20 MCHC 33.1 g/dL (33.0-37.0) 10/29/17 23:20 RDW 14.4 % (11.5-14.5) 10/29/17 23:20 Plt Count 234 K/uL (130-400) 10/29/17 23:20 MPV 9.1 fl (7.2-11.7) 10/29/17 23:20 Neut % (Auto) 84.4 % (50.0-75.0) H 10/29/17 23:20 Lymph % (Auto) 7.3 % (20.0-40.0) L 10/29/17 23:20 Kerr % (Auto) 7.1 % (0.0-10.0) 10/29/17 23:20 Eos % (Auto) 0.8 % (0.0-4.0) 10/29/17 23:20 Baso % (Auto) 0.4 % (0.0-2.0) 10/29/17 23:20 Neut # (Auto) 6.5 K/uL (1.8-7.0) 10/29/17 23:20 Lymph # (Auto) 0.6 K/uL (1.0-4.3) L 10/29/17 23:20 Kerr # (Auto) 0.5 K/uL (0.0-0.8) 10/29/17 23:20 Eos # (Auto) 0.1 K/uL (0.0-0.7) 10/29/17 23:20 Baso # (Auto) 0.0 K/uL (0.0-0.2) 10/29/17 23:20 Neutrophils % (Manual) 76 % (42-75) H 10/29/17 23:20 Lymphocytes % (Manual) 23 % (20-50) 10/29/17 23:20 Monocytes % (Manual) 1 % (0-10) 10/29/17 23:20 Platelet Estimate Normal (NORMAL) 10/29/17 23:20 RBC Morphology Normal (NORMAL) 10/29/17 23:20 PT 11.7 Seconds (9.8-13.1) 10/30/17 04:10 INR 1.1 (0.9-1.2) 10/30/17 04:10 APTT 30.0 Seconds (25.6-37.1) 10/30/17 04:10 pO2 34 mm/Hg (30-55) 10/29/17 23:55 VBG pH 7.39 (7.32-7.43) 10/29/17 23:55 VBG pCO2 39 mmHg (40-60) L 10/29/17 23:55 VBG HCO3 23.1 mmol/L 10/29/17 23:55 VBG Total CO2 24.8 mmol/L (22-28) 10/29/17 23:55 VBG O2 Sat (Calc) 73.3 % (40-65) H 10/29/17 23:55 VBG Base Excess -1.2 mmol/L (0.0-2.0) L 10/29/17 23:55 VBG Potassium 3.8 mmol/L (3.6-5.2) 10/29/17 23:55 Sodium 137.0 mmol/L (132-148) 10/29/17 23:55 Chloride 106.0 mmol/L (98-107) 10/29/17 23:55 Glucose 98 mg/dL (65-105) 10/29/17 23:55 Lactate 1.0 mmol/L (0.7-2.1) 10/29/17 23:55 FiO2 21.0 % 10/29/17 23:55 Sodium 140 mmol/l (132-148) 10/29/17 23:20 Potassium 3.9 MMOL/L (3.6-5.0) 10/29/17 23:20 Chloride 103 mmol/L (98-107) 10/29/17 23:20 Carbon Dioxide 23 mmol/L (22-30) 10/29/17 23:20 Anion Gap 18 (10-20) 10/29/17 23:20 BUN 12 mg/dl (7-17) 10/29/17 23:20 Creatinine 0.6 mg/dl (0.7-1.2) L 10/29/17 23:20 Est GFR ( Amer) > 60 10/29/17 23:20 Est GFR (Non-Af Amer) > 60 10/29/17 23:20 Random Glucose 100 mg/dL (65-105) 10/29/17 23:20 Calcium 8.6 mg/dL (8.4-10.2) 10/29/17 23:20 Total Bilirubin 0.4 mg/dl (0.2-1.3) 10/29/17 23:20 AST 31 U/L (14-36) 10/29/17 23:20 ALT 32 U/L (9-52) 10/29/17 23:20 Alkaline Phosphatase 90 U/L (38-126) 10/29/17 23:20 Total Protein 7.5 G/DL (6.3-8.2) 10/29/17 23:20 Albumin 3.9 g/dL (3.5-5.0) 10/29/17 23:20 Globulin 3.5 gm/dL (2.2-3.9) 10/29/17 23:20 Albumin/Globulin Ratio 1.1 (1.0-2.1) 10/29/17 23:20 Lipase 103 U/L (23-300) 10/29/17 23:20 Venous Blood Potassium 3.8 mmol/L (3.6-5.2) 10/29/17 23:55 Urine Color Yellow (YELLOW) 10/29/17 23:20 Urine Clarity Slighty-cloudy (Clear) 10/29/17 23:20 Urine pH 6.0 (5.0-8.0) 10/29/17 23:20 Ur Specific [place] 1.023 (1.003-1.030) 10/29/17 23:20 Urine Protein Negative mg/dL (NEGATIVE) 10/29/17 23:20 Urine Glucose (UA) Neg mg/dL (Normal) 10/29/17 23:20 Urine Ketones Negative mg/dL (NEGATIVE) 10/29/17 23:20 Urine Blood Negative (NEGATIVE) 10/29/17 23:20 Urine Nitrate Negative (NEGATIVE) 10/29/17 23:20 Urine Bilirubin Negative (NEGATIVE) 10/29/17 23:20 Urine Urobilinogen 0.2-1.0 mg/dL (0.2-1.0) 10/29/17 23:20 Ur Leukocyte Esterase Neg [place]/uL (Negative) 10/29/17 23:20 Urine RBC (Auto) 2 /hpf (0-3) 10/29/17 23:20 Urine Microscopic WBC 1 /hpf (0-5) 10/29/17 23:20 Ur Squamous Epith Cells 2 /hpf (0-5) 10/29/17 23:20 Urine Bacteria Rare (<OCC) 10/29/17 23:20 Urine Opiates Screen Negative (NEGATIVE) 10/29/17 23:20 Urine Methadone Screen Negative (NEGATIVE) 10/29/17 23:20 Ur Barbiturates Screen Negative (NEGATIVE) 10/29/17 23:20 Ur Phencyclidine Scrn Negative (NEGATIVE) 10/29/17 23:20 Ur Amphetamines Screen Negative (NEGATIVE) 10/29/17 23:20 U Benzodiazepines Scrn Negative (NEGATIVE) 10/29/17 23:20 U Oth Cocaine Metabols Negative (NEGATIVE) 10/29/17 23:20 U Cannabinoids Screen Negative (NEGATIVE) 10/29/17 23:20 - Hospital Course Hospital Course: 37 years old female came with worsening , 2 weeks of RLQ abdominal pain, sharp , continuous over the past 2 days, radiating across the mid and lower abdomen, right shoulder and the back; associated with nausea, vomits, diarrhea and palpitation. No fever, SOB, coughing, Melena nor dysuria. Ct abdomen showed : 1. Involuting or ruptured RIGHT ovarian follicle/cyst. 2. Borderline enlarged appendix. No definite inflammation. Clinical correlation is needed. 3. Mild biliary ductal dilatation. Correlate with laboratory values. Consider MRCP. 4. Possible pelvic congestion syndrome. Clinical correlation is needed. Patient was placed under observation in med/surg, kept NPO and started on IVF and zosyn prophylactically. Transvaginal US showed normal ovaries with no cyst Surgery was consulted and patient taken to OR for laparascopic appendectomy for early appendicitis Post op patient doing well, tolerating diet . Cleared by surgery for discharge Will d/c patient home on PO Augmentin for 1 week, Percoset PRN and colace follow up with Dr. Goodwin in 1week. Follow up with PMD Dr. Cueva F/u with her OB 1. Acute Appendicitis 2.Right Cervical Lymphadenopathy For Biopsy as outpatient 3. Involuted or ruptured Ovarian Cyst follow up with OB Discharge Exam - Head Exam Head Exam: ATRAUMATIC, NORMAL INSPECTION, NORMOCEPHALIC - Eye Exam Eye Exam: EOMI, Normal appearance, PERRL Pupil Exam: NORMAL ACCOMODATION - ENT Exam ENT Exam: Mucous Membranes Moist, Normal Exam - Neck Exam Neck exam: Full Rom, Normal Inspection - Respiratory Exam Respiratory Exam: Clear to PA & Lateral, NORMAL BREATHING PATTERN. absent: Rales, Rhonchi, Wheezes - Cardiovascular Exam Cardiovascular Exam: REGULAR RHYTHM, RRR, +S1, +S2. absent: JVD - GI/Abdominal Exam GI & Abdominal Exam: Normal Bowel Sounds, Soft. absent: Distended, Guarding, Rebound, Tenderness - Rectal Exam Rectal Exam: Deferred - Extremities Exam Extremities exam: normal capillary refill, normal inspection, pedal pulses present - Back Exam Back exam: NORMAL INSPECTION - Neurological Exam Neurological exam: Alert, CN II-XII Intact, Oriented x3, Reflexes Normal - Psychiatric Exam Psychiatric exam: Normal Affect, Normal Mood - Skin Skin Exam: Dry, Intact, Normal Color, Warm Discharge Plan - Discharge Medications Prescriptions: Amoxicillin/Clavulanate [Augmentin 875 MG-125 MG] 1 tab PO BID #14 tab Docusate [Colace] 100 mg PO BID #7 cap oxyCODONE/Acetaminophen [Percocet 5/325 mg Tab] 1 tab PO Q6 PRN #20 tab PRN Reason: Pain, Severe (8-10) - Follow Up Plan Condition: STABLE Disposition: HOME/ ROUTINE Patient education suggested?: Yes Instructions: Appendectomy, Laparoscopic Surgery (DC) Referrals: Twin Cueva MD [Family Provider] - Cady Goodwin MD [Staff Provider] -
[2017-10-30] MEDS ORDERED: Influenza Vaccine 18yr & older 0.5 ML/45 MCG SYR IM ONE (18:18)
[2017-10-31] MEDS ORDERED: Enoxaparin 40 mg Syringe SC SCH (09:00)
--- NOTE | 2017-11-02 12:08 | OP ---
PROCEDURE DATE: 10/30/2017 SURGEON: Cady Goodwin MD ANESTHESIOLOGIST ASSISTANT CERTIFIED: Dr. Capone. ANESTHESIA: General. PREOPERATIVE DIAGNOSIS: Appendicitis. POSTOPERATIVE DIAGNOSIS: Appendicitis. PROCEDURE: Laparoscopic appendectomy. DESCRIPTION OF OPERATION: With the patient in the supine position under adequate general anesthesia, the abdomen was prepped and draped in the usual sterile manner. Veress needle puncture was performed at the umbilicus with insufflation to 15 cm water pressure of CO2 and a 5-mm laparoscopic trocar was inserted via an infraumbilical incision. Under direct vision, 5 mm and 12-mm trocars were inserted in the left lower quadrant. The appendix was visualized. It was moderately indurated. It was elongated and tortuous and there were attachments to the lateral pelvic sidewall. The attachments were freed up and the appendix was fully elevated. The mesoappendix was dissected and divided with the Endo-MELCHOR stapler with the area of the appendiceal artery being reinforced with hemoclips. The appendix itself was then divided close to the cecum also using the Endo-MELCHOR stapler. The stump was examined for hemostasis. The appendix was placed in a specimen retrieval bag and removed via the 12-mm port site. The pelvis was irrigated and suctioned of small quantity of zane fluid, which was present upon laparoscopy and the pneumoperitoneum was released and the trocars were removed. The 12 mm port site was closed with a [id number] fascial suture of 0 Vicryl. All incisions were closed with 4-0 Monocryl subcuticular sutures and Dermabond glue. The patient tolerated the procedure well and transferred to recovery room in stable condition. Estimated blood loss for the procedure was 5 mL. Cady Goodwin MD AUGIE
== END 2017-10-30 22:55 | disposition home or self-care (01) ==
LOC: H.ER 22:16 → INTOOBSV 10-30 06:04 → H.ERHOLD 10-30 06:04 → H.MEDSURG1 10-30 06:49
PROVIDERS: ADMIT Internal Medicine; ATTEND Internal Medicine
DX: K35.80 Unspecified acute appendicitis (principal); K86.1 Other chronic pancreatitis; N83.291 Other ovarian cyst, right side; R59.1 Generalized enlarged lymph nodes; R18.8 Other ascites; Z87.440 Personal history of urinary (tract) infections
CPT/HCPCS: 44970; 74177; 76830; 80053; 80324; 80345; 80346; 80349; 80353; 80358; 80361; 81003; 81025; 82803; 83690; 83992; 85025; 85610; 85730; 88304; 96361; 96365; 96366; 96375; 96376; 99282; G0378; J0330; J1100; J1170; J1885; J2001; J2250; J2270; J2405; J2543; J2704; J2710; J3010; J7030; J7040; Q9967